=== PATIENT | female | born 1950 | race American Indian/Alaskan Native ===

== ENCOUNTER 2018-08-17 15:18 | Inpatient (IN) | payer MEDICARE ==
[2018-08-17] MEDS ORDERED: PROVENTIL IH ONE (16:10)
[2018-08-17] MEDS ORDERED: ATROVENT IH ONE (16:10)
[2018-08-17] MEDS ORDERED: DELTASONE PO ONE (16:10)
--- NOTE | 2018-08-17 16:17 | Emergency Department Report ---
ED Shortness of Breath HPI - General Chief Complaint: Dyspnea/Respdistress Stated Complaint: SOB Time Seen by Provider: 08/17/18 15:38 Source: patient Mode of arrival: Ambulatory Limitations: No Limitations - History of Present Illness Initial Comments: Mrs. Hansen is a 68-year-old female with history of asthma and COPD who presents with severe shortness of breath and wheezing for the past few days. She is visiting her sister from [place]. She presumes that her sister's dog's dander as the cause of this exacerbation. She normally requires a prednisone taper when she has severe attack. 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 She is not dependent on oxygen. She's had productive cough. She denies fever. Last use of antibiotics one week ago for a dental procedure. Recently admitted last month for COPD exacerbation in her home town. Complaint: shortness of breath, cough -: Gradual, days(s) (2-3) Severity: moderate Consistency: constant Worsens With: exertion Known History Of: COPD, asthma Context: allergen exposure, recent travel Associated Symptoms: cough, sputum production - Related Data Previous Rx's Medication Instructions Recorded Last Taken Type Prednisone [predniSONE 10 mg 10 mg PO .TAPER #1 tab.ds.pk 08/17/18 Unknown Rx (6-Day Pack, 21 Tabs)] Allergies Allergy/AdvReac Type Severity Reaction Status Date / Time DAGOBERTO Inhibitors Allergy Unknown Verified 08/17/18 15:21 avocado Allergy Unknown Verified 08/17/18 15:21 ED Review of Systems ROS: Stated complaint: SOB Other details as noted in HPI Comment: All other systems reviewed and negative Constitutional: denies: fever, malaise Respiratory: cough, shortness of breath, wheezing Cardiovascular: denies: chest pain ED Past Medical Hx - Past Medical History Previous Medical History?: Yes Hx Asthma: Yes Hx COPD: Yes - Surgical History Past Surgical History?: Yes Additional Surgical History: bilateral knee replacement. - Social History Smoking Status: Former Smoker Substance Use Type: Alcohol, Marijuana - Medications Home Medications: Home Medications Medication Instructions Recorded Confirmed Last Taken Type Prednisone [predniSONE 10 mg 10 mg PO .TAPER #1 tab.ds.pk 08/17/18 Unknown Rx (6-Day Pack, 21 Tabs)] ED Physical Exam - General Limitations: No Limitations General appearance: alert, in distress, other (bent over, uncomfortable with work of breathing, audible wheezing) - Head Head exam: Present: atraumatic, normocephalic - Eye Eye exam: Present: normal appearance - ENT ENT exam: Present: mucous membranes moist - Neck Neck exam: Present: normal inspection, full ROM - Respiratory Respiratory exam: Present: respiratory distress, wheezes, accessory muscle use, decreased breath sounds, prolonged expiratory - Cardiovascular Cardiovascular Exam: Present: normal rhythm, tachycardia, normal heart sounds. Absent: systolic murmur, diastolic murmur, rubs, gallop - GI/Abdominal GI/Abdominal exam: Present: soft, normal bowel sounds. Absent: distended, tenderness, guarding, rebound - Extremities Exam Extremities exam: Present: normal inspection - Back Exam Back exam: Present: normal inspection - Neurological Exam Neurological exam: Present: alert, oriented X3 - Psychiatric Psychiatric exam: Present: normal affect, normal mood - Skin Skin exam: Present: warm, dry, intact, normal color. Absent: rash ED Course Vital Signs 08/17/18 08/17/18 08/17/18 15:22 16:25 16:30 Temperature 98.1 F Pulse Rate 127 H Pulse Rate [ 119 H Anterior Bilateral] Respiratory 30 H Rate Respiratory 32 H Rate [Anterior Bilateral] Blood Pressure 145/91 O2 Sat by Pulse 94 79 L Oximetry 08/17/18 16:55 Temperature Pulse Rate Pulse Rate [ 121 H Anterior Bilateral] Respiratory Rate Respiratory 24 Rate [Anterior Bilateral] Blood Pressure O2 Sat by Pulse Oximetry ED Medical Decision Making - Lab Data Result diagrams: 08/17/18 17:54 08/17/18 17:54 - Radiology Data Radiology results: report reviewed cxr: prominent hilum - Medical Decision Making Acute COPD exacerbation presumed to be incited by allergen exposure. She received continuous neb therapy in the emergency Department as well as first dose prednisone. Continued wheezing with need for oxygen supplementation. admitted to hospitalist service Critical care attestation.: If time is entered above; I have spent that time in minutes in the direct care of this critically ill patient, excluding procedure time. ED Disposition Clinical Impression: Acute exacerbation of COPD with asthma Disposition: OP ADMIT IP TO THIS HOSP Is pt being admited?: Yes Does the pt Need Aspirin: No Condition: Stable Prescriptions: Prednisone [predniSONE 10 mg (6-Day Pack, 21 Tabs)] 10 mg PO .TAPER #1 tab.ds.pk Referrals: PRIMARY CARE, [Primary Care Provider] - 3-5 Days
[2018-08-17] MEDS ORDERED: MAGNESIUM SULFATE 2GM/50ML 2 GM/50 ML BAG IV ONE (17:21)
--- NOTE | 2018-08-17 17:48 | XRay Report ---
PROCEDURE: XR CHEST 1V AP TECHNIQUE: Chest radiograph single view. HISTORY: Dyspnea COMPARISONS: None . FINDINGS: Heart: Normal. Mediastinum/Vessels: Mildly prominent right hilum may be related to vascular prominence or adenopathy . Lungs/Pleural space: No infiltrate, effusion, or pneumothorax. Bony thorax: No acute osseous abnormality. Life support devices: None. IMPRESSION: Mildly prominent right hilum may be related to vascular prominence or adenopathy. This document is electronically signed by Sharmila Mukherjee MD., Aug 17 2018 05:46:34 PM ET
[2018-08-17 18:19] LABS: Basophils % (Auto) 0.6 % (0.0-1.8); Eosinophils # (Auto) 0.2 K/mm3 (0.0-0.4); Eosinophils % (Auto) 2.8 % (0.0-4.3); Hematocrit 41.7 % (30.3-42.9); Hemoglobin 14.5 gm/dl (10.1-14.3); Lymphocytes # (Auto) 1.3 K/mm3 (1.2-5.4); Lymphocytes % (Auto) 18.1 % (13.4-35.0); Mean Corpuscular HGB Conc 35 % (30-34); Mean Corpuscular Volume 93 fl (79-97); Monocytes # (Auto) 0.8 K/mm3 (0.0-0.8); Monocytes % (Auto) 11.3 % (0.0-7.3); Platelet Count 252 K/mm3 (140-440); Red Blood Count 4.48 M/mm3 (3.65-5.03); Red Cell Distribution Width 15.4 % (13.2-15.2)
[2018-08-17] MEDS ORDERED: LEVAQUIN PO ONE (18:21)
[2018-08-17 18:30] LABS: Alanine Aminotransferase 7 units/L (7-56); Albumin 4.2 g/dL (3.9-5); BUN/Creatinine Ratio 10; Blood Urea Nitrogen 7 mg/dL (7-17); Calcium 9.5 mg/dL (8.4-10.2); Hemolysis Index 21
--- NOTE | 2018-08-17 20:37 | History and Physical Report ---
History of Present Illness Date of examination: 08/17/18 Date of admission: 08/17/18 18:56 Chief complaint: SOB and wheezing for 3 to 4 days History of present illness: 68-year-old female with history of asthma and COPD presents with severe shortness of breath and wheezing for the past 3 to days. She is from [facility] visiting her sister in [place]. She presumes that her sister's dog's dander as the cause of this exacerbation. She normally requires a prednisone taper when she has severe attack. 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 She is not dependent on oxygen. She's has cough of mucoid sputum.. She denies fever. Last use of antibiotics one week ago for a dental procedure. Past Medical History Previous Medical History?: Yes Asthma: Yes COPD: Yes Surgical History Past Surgical History?: Yes Additional Surgical History: bilateral knee replacement. Social History Smoking Status: Former Smoker Substance Use Type: Alcohol, Marijuana Family History Htn - Medications Home Medications: Home Medications Medication Instructions Recorded Confirmed Last Taken Type Prednisone [predniSONE 10 mg 10 mg PO .TAPER #1 tab.ds.pk 08/17/18 Unknown Rx (6-Day Pack, 21 Tabs)] Medications and Allergies Allergies Allergy/AdvReac Type Severity Reaction Status Date / Time DAGOBERTO Inhibitors Allergy Unknown Verified 08/17/18 15:21 avocado Allergy Unknown Verified 08/17/18 15:21 Home Medications Medication Instructions Recorded Confirmed Last Taken Type Fluticasone/Salmeterol [Advair 1 puff PO DAILY 08/17/18 08/17/18 Unknown History Diskus 500-50 mcg] Montelukast [Singulair] 1 tab PO HS 08/17/18 08/17/18 Unknown History Prednisone [predniSONE 10 mg 10 mg PO .TAPER #1 tab.ds.pk 08/17/18 Unknown Rx (6-Day Pack, 21 Tabs)] Roflumilast [Daliresp] 500 mcg PO QDAY 08/17/18 08/17/18 Unknown History Umeclidinium [place] [Incruse 62.5 mcg IH DAILY 08/17/18 08/17/18 Unknown History Ellipta 62.5MCG] Review of Systems All systems: negative Constitutional: no weight loss, no weight gain, no fever, no chills Ears, nose, mouth and throat: no ear pain, no ear discharge, no tinnitis, no decreased hearing, no nose pain, no nasal congestion Cardiovascular: shortness of breath Respiratory: cough, cough with sputum, shortness of breath, dyspnea on exertion, congestion, wheezing Gastrointestinal: no abdominal pain, no nausea, no vomiting, no diarrhea, no constipation Genitourinary Female: no dysuria, no urinary frequency, no urgency, no stress incontinence Menstruation: ammenorrhea Rectal: no pain Musculoskeletal: no neck stiffness, no neck pain, no shooting arm pain, no arm numbness/tingling, no low back pain, no shooting leg pain, no leg numbness/tingling, no redness of joints Integumentary: no rash, no pruritis, no redness, no sores, no wounds, no jaundice, no boils, no blisters Neurological: no seizures, no syncope Psychiatric: no anxiety, no memory loss, no change in sleep habits, no sleep disturbances, no insomnia, no hypersomnia, no change in appetite, no change in libido Endocrine: no cold intolerance, no heat intolerance, no polyphagia, no excessive thirst, no polydipsia Hematologic/Lymphatic: no easy bruising, no easy bleeding Allergic/Immunologic: wheezing, no urticaria, no allergic rhinitis Exam - Constitutional Vitals: Temp Pulse Resp BP Pulse Ox 98.3 F 117 H 20 139/90 89 08/17/18 20:25 08/17/18 20:00 08/17/18 20:20 08/17/18 20:20 08/17/18 20:00 General appearance: Present: mild distress, well-nourished - EENT Eyes: Present: PERRL ENT: hearing intact, clear oral mucosa - Neck Neck: Present: supple, normal ROM - Respiratory Respiratory effort: normal Respiratory: bilateral: CTA, rhonchi, wheezing - Cardiovascular Heart rate: 88 Rhythm: regular Heart Sounds: Present: S1 & S2. Absent: rub, click - Extremities Extremities: no ischemia, pulses intact, pulses symmetrical, No edema Peripheral Pulses: within normal limits - Abdominal General gastrointestinal: Present: soft, non-tender, non-distended, normal bowel sounds Female genitourinary: Present: normal - Rectal Rectal Exam: deferred - Integumentary Integumentary: Present: clear, warm, dry - Musculoskeletal Musculoskeletal: gait normal, strength equal bilaterally - Psychiatric Psychiatric: appropriate mood/affect, intact judgment & insight - Neurologic Neurologic: CNII-XII intact, moves all extremities - Allied Health Allied health notes reviewed: nursing Results - Labs CBC & Chem 7: 08/17/18 17:54 08/17/18 17:54 Labs: Laboratory Last Values WBC 7.2 K/mm3 (4.5-11.0) 08/17/18 17:54 RBC 4.48 M/mm3 (3.65-5.03) 08/17/18 17:54 Hgb 14.5 gm/dl (10.1-14.3) H 08/17/18 17:54 Hct 41.7 % (30.3-42.9) 08/17/18 17:54 MCV 93 fl (79-97) 08/17/18 17:54 MCH 32 pg (28-32) 08/17/18 17:54 MCHC 35 % (30-34) H 08/17/18 17:54 RDW 15.4 % (13.2-15.2) H 08/17/18 17:54 Plt Count 252 K/mm3 (140-440) 08/17/18 17:54 Lymph % (Auto) 18.1 % (13.4-35.0) 08/17/18 17:54 [place] % (Auto) 11.3 % (0.0-7.3) H 08/17/18 17:54 Eos % (Auto) 2.8 % (0.0-4.3) 08/17/18 17:54 Baso % (Auto) 0.6 % (0.0-1.8) 08/17/18 17:54 Lymph # 1.3 K/mm3 (1.2-5.4) 08/17/18 17:54 [place] # 0.8 K/mm3 (0.0-0.8) 08/17/18 17:54 Eos # 0.2 K/mm3 (0.0-0.4) 08/17/18 17:54 Baso # 0.0 K/mm3 (0.0-0.1) 08/17/18 17:54 Seg Neutrophils % 67.2 % (40.0-70.0) 08/17/18 17:54 Seg Neutrophils # 4.8 K/mm3 (1.8-7.7) 08/17/18 17:54 Sodium 137 mmol/L (137-145) 08/17/18 17:54 Potassium 3.3 mmol/L (3.6-5.0) L 08/17/18 17:54 Chloride 96.4 mmol/L (98-107) L 08/17/18 17:54 Carbon Dioxide 24 mmol/L (22-30) 08/17/18 17:54 20 mmol/L 08/17/18 17:54 BUN 7 mg/dL (7-17) 08/17/18 17:54 0.7 mg/dL (0.7-1.2) 08/17/18 17:54 Estimated GFR > 60 ml/min 08/17/18 17:54 10 % 08/17/18 17:54 Glucose 120 mg/dL (65-100) H 08/17/18 17:54 Calcium 9.5 mg/dL (8.4-10.2) 08/17/18 17:54 0.30 mg/dL (0.1-1.2) 08/17/18 17:54 AST 20 units/L (5-40) 08/17/18 17:54 ALT 7 units/L (7-56) 08/17/18 17:54 79 units/L (35-129) 08/17/18 17:54 7.1 g/dL (6.3-8.2) 08/17/18 17:54 4.2 g/dL (3.9-5) 08/17/18 17:54 1.4 % 08/17/18 17:54 Short CBC 08/17/18 Range/Units 17:54 WBC 7.2 (4.5-11.0) K/mm3 Hgb 14.5 H (10.1-14.3) gm/dl Hct 41.7 (30.3-42.9) % Plt Count 252 (140-440) K/mm3 BMP 08/17/18 17:54 Sodium 137 Potassium 3.3 L Chloride 96.4 L Carbon Dioxide 24 BUN 7 Creatinine 0.7 Glucose 120 H Calcium 9.5 Liver Function 08/17/18 Range/Units 17:54 Total Bilirubin 0.30 (0.1-1.2) mg/dL AST 20 (5-40) units/L ALT 7 (7-56) units/L Alkaline Phosphatase 79 (35-129) units/L Albumin 4.2 (3.9-5) g/dL - Imaging and Cardiology Chest x-ray: report reviewed Imaging and Cardiology: CXR IMPRESSION: Mildly prominent right hilum may be related to vascular prominence or adenopathy. Assessment and Plan Advance Directives: Yes (Full code) VTE prophylaxis?: Chemical Plan of care discussed with patient/family: Yes - Patient Problems (1) Acute exacerbation of COPD with asthma Current Visit: Yes Status: Acute Plan to address problem: Patient initiated on IV Levaquin IV Solumedrol and Duonebs /Albuterol Bipap if necessary Intubation if necessary (2) Acute respiratory failure with hypoxia Current Visit: Yes Status: Acute Plan to address problem: Patient Hypoxic initially Refuses ABG Patient initiated on IV Levaquin IV Solumedrol and Duonebs /Albuterol Bipap if necessary Intubation if necessary (3) Hypokalemia Current Visit: Yes Status: Acute Plan to address problem: Potassium supplemented (4) DVT prophylaxis Current Visit: Yes Status: Acute Plan to address problem: On Lovenox and GI prophylaxis
[2018-08-17] MEDS ORDERED: ZOFRAN IV PRN (20:42)
[2018-08-17] MEDS ORDERED: PERCOCET 5/325 PO PRN (20:42)
[2018-08-17] MEDS ORDERED: MORPHINE IV PRN (20:42)
[2018-08-17] MEDS ORDERED: UMECLIDINIUM BROMIDE 62.5 MCG IH SCH (20:45)
[2018-08-17] MEDS ORDERED: NON-FORMULARY (Fluticasone/Salmeterol [Advair Diskus 500-50 Mcg] 1 PUFF) PO SCH (20:45)
[2018-08-17] MEDS: SINGULAIR PO SCH (22:55)
[2018-08-17] MEDS: SOLU-Medrol IV SCH (22:55)
[2018-08-17] MEDS: SODIUM CHLORIDE FLUSH SYRINGE 10 ML IV SCH (22:56)
[2018-08-17] MEDS ORDERED: PEPCID PO ONE (23:33)
[2018-08-17] MEDS: PROVENTIL IH PRN (23:57)
[2018-08-18] MEDS ORDERED: K-DUR PO ONE (00:08)
[2018-08-18] MEDS: PULMICORT IH SCH ×3 (02:49→19:49)
[2018-08-18] MEDS: BROVANA NEBU IH SCH ×3 (02:49→19:49)
[2018-08-18] MEDS: PROVENTIL IH PRN (04:18)
[2018-08-18] MEDS: SOLU-Medrol IV SCH ×3 (05:46→21:58)
[2018-08-18] MEDS: DUONEB *Not for PRN Use IH SCH ×4 (07:36→19:49)
[2018-08-18] MEDS: SODIUM CHLORIDE FLUSH SYRINGE 10 ML IV SCH ×2 (09:46→22:00)
[2018-08-18] MEDS: LEVAQUIN 750MG/150ML 750 MG/150 ML BAG IV SCH (09:47)
[2018-08-18 12:14] LABS: Basophils % (Auto) 0.2 % (0.0-1.8); Hemoglobin 14.1 gm/dl (10.1-14.3); Lymphocytes # (Auto) 0.5 K/mm3 (1.2-5.4); Lymphocytes % (Auto) 9.2 % (13.4-35.0); Mean Corpuscular HGB Conc 34 % (30-34); Mean Corpuscular Volume 94 fl (79-97); Monocytes # (Auto) 0.2 K/mm3 (0.0-0.8); Monocytes % (Auto) 3.9 % (0.0-7.3); Platelet Count 240 K/mm3 (140-440); Red Blood Count 4.48 M/mm3 (3.65-5.03); Red Cell Distribution Width 15.4 % (13.2-15.2)
[2018-08-18] MEDS: TYLENOL PO PRN ×2 (12:37→22:05)
[2018-08-18 12:38] LABS: Alanine Aminotransferase 9 units/L (7-56); Albumin 4.2 g/dL (3.9-5); BUN/Creatinine Ratio 13; Blood Urea Nitrogen 9 mg/dL (7-17); Calcium 9.4 mg/dL (8.4-10.2); Hemolysis Index 84
--- NOTE | 2018-08-18 14:24 | Progress Note ---
Assessment and Plan Assessment and plan: SOB and wheezing for 3 to 4 days History of present illness: 68-year-old female with history of asthma and COPD presents with severe shortness of breath and wheezing for the past 3 to days. She is from [facility] visiting her sister in [place]. She presumes that her sister's dog's dander as the cause of this exacerbation. She normally requires a prednisone taper when she has severe attack. 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 She is not dependent on oxygen. She's has cough of mucoid sputum.. She denies fever. Last use of antibiotics one week ago for a dental procedure. -She has had FEV1 of 0.6, complaining of recent exposure to pet hair and tobacco smoke from secondhand smoke Past Medical History Previous Medical History?: Yes Asthma: Yes COPD: Yes ) Acute exacerbation of severe COPD with asthma Continue steroids and nebulizers, rescue BiPAP as needed -Continue oxygen supplementation Acute respiratory failure with hypoxia Continue to supplement oxygen (Hypokalemia Potassium supplemented DVT prophylaxis On Lovenox and GI prophylaxis History Interval history: Review of systems Constitutional: No fevers, no malaise, no joint pains CVS: No chest pain, no orthopnea, no pedal edema GI: No abdominal pain, no diarrhea, no vomiting, no constipation Respiratory: Continues to complain of shortness of breath, wheezing, and cough Hospitalist Physical - Physical exam Narrative exam: General.: Appears well, no distress, nontoxic HEENT: Moist mucous membranes, extraocular muscles intact, no lymphadenopathy Neck: supple Cardiac: S1-S2 heard Lungs: Diminished air entry, wheezing throughout Abdomen: soft , nontender, nondistended, bowel sounds positive Extremities: no edema clubbing or cyanosis Skin: no rash or lesions Neurologic: no gross focal deficits Psych: calm, and cooperative - Constitutional Vitals: Temp Pulse Resp BP Pulse Ox 98.6 F 93 H 22 140/90 94 08/18/18 08:25 08/18/18 08:25 08/18/18 08:25 08/18/18 08:25 08/18/18 08:25 General appearance: Present: mild distress, well-nourished Results - Labs CBC & Chem 7: 08/18/18 11:40 08/18/18 11:40 Labs: Laboratory Last Values WBC 4.9 K/mm3 (4.5-11.0) 08/18/18 11:40 RBC 4.48 M/mm3 (3.65-5.03) 08/18/18 11:40 Hgb 14.1 gm/dl (10.1-14.3) 08/18/18 11:40 Hct 42.0 % (30.3-42.9) 08/18/18 11:40 MCV 94 fl (79-97) 08/18/18 11:40 MCH 32 pg (28-32) 08/18/18 11:40 MCHC 34 % (30-34) 08/18/18 11:40 RDW 15.4 % (13.2-15.2) H 08/18/18 11:40 Plt Count 240 K/mm3 (140-440) 08/18/18 11:40 Lymph % (Auto) 9.2 % (13.4-35.0) L 08/18/18 11:40 [place] % (Auto) 3.9 % (0.0-7.3) 08/18/18 11:40 Eos % (Auto) 0.0 % (0.0-4.3) 08/18/18 11:40 Baso % (Auto) 0.2 % (0.0-1.8) 08/18/18 11:40 Lymph # 0.5 K/mm3 (1.2-5.4) L 08/18/18 11:40 [place] # 0.2 K/mm3 (0.0-0.8) 08/18/18 11:40 Eos # 0.0 K/mm3 (0.0-0.4) 08/18/18 11:40 Baso # 0.0 K/mm3 (0.0-0.1) 08/18/18 11:40 Seg Neutrophils % 86.7 % (40.0-70.0) H 08/18/18 11:40 Seg Neutrophils # 4.2 K/mm3 (1.8-7.7) 08/18/18 11:40 Sodium 137 mmol/L (137-145) 08/18/18 11:40 Potassium 4.3 mmol/L (3.6-5.0) D 08/18/18 11:40 Chloride 95.2 mmol/L (98-107) L 08/18/18 11:40 Carbon Dioxide 28 mmol/L (22-30) 08/18/18 11:40 18 mmol/L 08/18/18 11:40 BUN 9 mg/dL (7-17) 08/18/18 11:40 0.7 mg/dL (0.7-1.2) 08/18/18 11:40 Estimated GFR > 60 ml/min 08/18/18 11:40 13 % 08/18/18 11:40 Glucose 192 mg/dL (65-100) H 08/18/18 11:40 5.5 % (4-6) 08/17/18 20:55 Calcium 9.4 mg/dL (8.4-10.2) 08/18/18 11:40 0.20 mg/dL (0.1-1.2) 08/18/18 11:40 AST 26 units/L (5-40) 08/18/18 11:40 ALT 9 units/L (7-56) 08/18/18 11:40 73 units/L (35-129) 08/18/18 11:40 7.3 g/dL (6.3-8.2) 08/18/18 11:40 4.2 g/dL (3.9-5) 08/18/18 11:40 1.4 % 08/18/18 11:40 Active Medications - Current Medications Current Medications: Generic Name Dose Route Start Last Admin Trade Name Freq PRN Reason Stop Dose Admin Acetaminophen 650 mg 08/17/18 20:42 08/18/18 12:37 Tylenol PO 650 mg Q4H PRN Administration Pain MILD(1-3)/Fever >100.5/LEMA Albuterol 2.5 mg 08/17/18 20:46 08/18/18 04:18 Proventil IH 2.5 mg Q4HRT PRN Administration Shortness Of Breath Albuterol/Ipratropium 1 ampul 08/18/18 08:00 08/18/18 12:59 Duoneb *Not For Prn Use* IH 1 ampul QIDRT JEFFERY Administration Arformoterol Tartrate 15 mcg 08/17/18 21:00 08/18/18 07:36 Brovana Nebu IH 15 mcg Q12HRT JEFFERY Administration Budesonide 0.5 mg 08/17/18 21:00 08/18/18 07:36 Pulmicort IH 0.5 mg Q12HRT JEFFERY Administration Enoxaparin Sodium 40 mg 08/18/18 22:00 Lovenox SUB-Q QDAY@2200 JEFFERY Sodium Chloride 1,000 mls @ 42 mls/hr 08/17/18 21:00 Nacl 0.9% 1000 Ml IV DIRECT JEFFERY Levofloxacin/Dextrose 750 mg in 150 mls @ 100 mls/hr 08/18/18 10:00 08/18/18 09:47 Levaquin 750mg/150ml IV 100 mls/hr Q24HR JEFFERY Administration Protocol Methylprednisolone Sodium Succinate 80 mg 08/17/18 22:00 08/18/18 05:46 Solu-Medrol IV 80 mg Q8HR JEFFERY Administration Miscellaneous Medication 500 mcg 08/17/18 20:45 Roflumilast [Daliresp] PO QDAY JEFFERY Montelukast Sodium 10 mg 08/17/18 22:00 08/17/18 22:55 Singulair PO 10 mg HS JEFFERY Administration Morphine Sulfate 2 mg 08/17/18 20:42 Morphine IV Q4H PRN Pain, Moderate (4-6) Ondansetron HCl 4 mg 08/17/18 20:42 Zofran IV Q8H PRN Nausea And Vomiting Oxycodone/Acetaminophen 1 tab 08/17/18 20:42 Percocet 5/325 PO Q6H PRN Pain, Moderate (4-6) Sodium Chloride 10 ml 08/17/18 22:00 08/18/18 09:46 Sodium Chloride Flush Syringe 10 Ml IV 10 ml BID JEFFERY Administration Sodium Chloride 10 ml 08/17/18 20:42 Sodium Chloride Flush Syringe 10 Ml IV PRN PRN LINE FLUSH
[2018-08-18] MEDS: NACL 0.9% 1000 ML 1,000 ML IV SCH (16:03)
--- NOTE | 2018-08-18 18:06 | Consultation ---
History of Present Illness Consult date: 08/18/18 Reason for consult: dyspnea, cough, COPD History of present illness: PULMONARY AND CRITICAL CARE CONSULTATION. DR. MONROE THANK YOU FOR ASKING US TO PARTICIPATE IN THE CARE OF THIS PATIENT. 68-year-old female with history of asthma and COPD presents with severe shortness of breath and wheezing for the past 3 to days. She is from [facility] visiting her sister in [place]. She presumes that her sister's dog's dander as the cause of this exacerbation. She normally requires a prednisone taper when she has severe attack. 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 She is not dependent on oxygen. She's has cough of mucoid sputum.. She denies fever. Last use of antibiotics one week ago for a dental procedure. Patient has history of smoking 5 to 6 cigaretts a day x 50 years. Stopped smoking 3 months ago. Patient also smokes Marijuna. Denies alcohol abuse. 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 Patient is allergic to DAGOBERTO inhhibitors and avacado. Patient and has one living children. Patient started on I/V solumedrol,Levaquin and aerosolized bronchodilators. Patient still has some wheezing. Past History Past Medical History: COPD, hypertension Medications and Allergies Allergies Allergy/AdvReac Type Severity Reaction Status Date / Time DAGOBERTO Inhibitors Allergy Unknown Verified 08/17/18 15:21 avocado Allergy Unknown Verified 08/17/18 15:21 Home Medications Medication Instructions Recorded Confirmed Last Taken Type Fluticasone/Salmeterol [Advair 1 puff PO DAILY 08/17/18 08/17/18 Unknown History Diskus 500-50 mcg] Montelukast [Singulair] 1 tab PO HS 08/17/18 08/17/18 Unknown History Prednisone [predniSONE 10 mg 10 mg PO .TAPER #1 tab.ds.pk 08/17/18 Unknown Rx (6-Day Pack, 21 Tabs)] Roflumilast [Daliresp] 500 mcg PO QDAY 08/17/18 08/17/18 Unknown History Umeclidinium [place]im [Incruse 62.5 mcg IH DAILY 08/17/18 08/17/18 Unknown History Ellipta 62.5MCG] Daliresp 500 mcg PO DAILY 08/18/18 08/18/18 Unknown History Hydrochlorothiazide 12.5 mg PO QDAY 08/18/18 08/18/18 Unknown History Losartan 100 mg PO QDAY 08/18/18 08/18/18 Unknown History Active Meds: Active Medications Acetaminophen (Tylenol) 650 mg PO Q4H PRN PRN Reason: Pain MILD(1-3)/Fever >100.5/LEMA Last Admin: 08/18/18 12:37 Dose: 650 mg Documented by: Albuterol (Proventil) 2.5 mg IH Q4HRT PRN PRN Reason: Shortness Of Breath Last Admin: 08/18/18 04:18 Dose: 2.5 mg Documented by: Albuterol/Ipratropium (Duoneb *Not For Prn Use*) 1 ampul IH QIDRT [facility] Last Admin: 08/18/18 16:36 Dose: 1 ampul Documented by: Arformoterol Tartrate (Brovana Nebu) 15 mcg IH Q12HRT [facility] Last Admin: 08/18/18 07:36 Dose: 15 mcg Documented by: Budesonide (Pulmicort) 0.5 mg IH Q12HRT [facility] Last Admin: 08/18/18 07:36 Dose: 0.5 mg Documented by: Enoxaparin Sodium (Lovenox) 40 mg SUB-Q QDAY@2200 JEFFERY Sodium Chloride (Nacl 0.9% 1000 Ml) 1,000 mls @ 42 mls/hr IV DIRECT [facility] Last Admin: 08/18/18 16:03 Dose: 42 mls/hr Documented by: Levofloxacin/Dextrose (Levaquin 750mg/150ml) 750 mg in 150 mls @ 100 mls/hr IV Q24HR [facility]; Protocol Last Admin: 08/18/18 09:47 Dose: 100 mls/hr Documented by: Methylprednisolone Sodium Succinate (Solu-Medrol) 125 mg IV Q8HR [facility] Miscellaneous Medication (Roflumilast [Daliresp]) 500 mcg PO QDAY [facility] Montelukast Sodium (Singulair) 10 mg PO HS [facility] Last Admin: 08/17/18 22:55 Dose: 10 mg Documented by: Morphine Sulfate (Morphine) 2 mg IV Q4H PRN PRN Reason: Pain, Moderate (4-6) Ondansetron HCl (Zofran) 4 mg IV Q8H PRN PRN Reason: Nausea And Vomiting Oxycodone/Acetaminophen (Percocet 5/325) 1 tab PO Q6H PRN PRN Reason: Pain, Moderate (4-6) Sodium Chloride (Sodium Chloride Flush Syringe 10 Ml) 10 ml IV BID JEFFERY Last Admin: 08/18/18 09:46 Dose: 10 ml Documented by: Sodium Chloride (Sodium Chloride Flush Syringe 10 Ml) 10 ml IV PRN PRN PRN Reason: LINE FLUSH Review of Systems All systems: negative Physical Examination Vital signs: Vital Signs Temp Pulse Resp BP Pulse Ox 98.1 F 127 H 30 H 145/91 94 08/17/18 15:22 08/17/18 15:22 08/17/18 15:22 08/17/18 15:22 08/17/18 15:22 General appearance: no acute distress, alert Eyes: non-icteric ENT: oropharynx moist Neck: supple, no JVD Ascultation: Bilateral: wheezes (Diffuse bilateral wheezing.), rhonchi (Bilateral rhonchi.) Cardiovascular: regular rate and rhythm Gastrointestinal: normoactive bowel sounds, soft, non-tender Integumentary: normal Extremities: no cyanosis, no edema Musculoskeletal: no deformities Gait: normal gait normal mental status, non-focal exam, pupils equal and round, CN II-XII normal mood appropriate Results - Laboratory Findings CBC and BMP: 08/18/18 11:40 08/18/18 11:40 Abnormal lab findings: Abnormal Labs 08/17/18 08/17/18 08/18/18 17:54 17:54 11:40 Hgb 14.5 H MCHC 35 H RDW 15.4 H 15.4 H Lymph % (Auto) 9.2 L [place] % (Auto) 11.3 H Lymph # 0.5 L Seg Neutrophils % 86.7 H Potassium 3.3 L Chloride 96.4 L Glucose 120 H 08/18/18 11:40 Hgb MCHC RDW Lymph % (Auto) [place] % (Auto) Lymph # Seg Neutrophils % Potassium Chloride 95.2 L Glucose 192 H - Diagnostic Findings Chest x-ray: report reviewed (Reported mildly prominent right hilum.), image re viewed Assessment and Plan 68-year-old female with history of asthma and COPD presents with severe shortness of breath and wheezing for the past 3 to days. She is from [facility] visiting her sister in [place]. She presumes that her sister's dog's dander as the cause of this exacerbation. She normally requires a prednisone taper when she has severe attack. 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 She is not dependent on oxygen. She's has cough of mucoid sputum.. She denies fever. Last use of antibiotics one week ago for a dental procedure. Patient has history of smoking 5 to 6 cigaretts a day x 50 years. Stopped smoking 3 months ago. Patient also smokes Marijuna. Denies alcohol abuse. 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 Patient is allergic to DAGOBERTO inhhibitors and avacado. Patient and has one living children. Patient started on I/V solumedrol,Levaquin and aerosolized bronchodilators. Patient still has some wheezing. - Patient Problems (1) Acute exacerbation of COPD with asthma Current Visit: Yes Status: Acute Plan to address problem: O2 3 litres via nasal canula. Albuterol/atrovent aerosol treatments q 6 hours. Continue I/V solumedrol. Continue Levaquin Continue S/C Lovenox. ABGs on room air. Chest xray reported slightly prominent right hilum, Obtaining Angio CT scan of chest. (2) Acute respiratory failure with hypoxia Current Visit: Yes Status: Acute Plan to address problem: O2 3 litres via nasal canula. BIPAP stand by in the room. Albuterol/atrovent aerosol treatments q 6 hours. Continue I/V solumedrol. Continue Levaquin Continue S/C Lovenox.
[2018-08-18] MEDS: SINGULAIR PO SCH (21:58)
[2018-08-18] MEDS: LOVENOX SUB-Q SCH (21:59)
[2018-08-19] MEDS: PROVENTIL IH PRN (01:34)
[2018-08-19] MEDS: ATIVAN PO PRN ×4 (02:28→21:55)
[2018-08-19] MEDS: SOLU-Medrol IV SCH ×3 (05:58→21:55)
[2018-08-19] MEDS: PULMICORT IH SCH ×2 (07:30→20:11)
[2018-08-19] MEDS: BROVANA NEBU IH SCH ×2 (07:30→20:10)
[2018-08-19] MEDS: DUONEB *Not for PRN Use IH SCH ×4 (07:53→20:10)
--- NOTE | 2018-08-19 08:01 | Progress Note ---
Assessment and Plan Assessment and plan: SOB and wheezing for 3 to 4 days History of present illness: 68-year-old female with history of asthma and COPD presents with severe shortness of breath and wheezing for the past 3 to days. She is from [facility] visiting her sister in [place]. She presumes that her sister's dog's dander as the cause of this exacerbation. She normally requires a prednisone taper when she has severe attack. 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 She is not dependent on oxygen. She's has cough of mucoid sputum.. She denies fever. Last use of antibiotics one week ago for a dental procedure. -She has had FEV1 of 0.6, complaining of recent exposure to pet hair and tobacco smoke from secondhand smoke Past Medical History Previous Medical History?: Yes Asthma: Yes COPD: Yes ) Acute exacerbation of severe COPD with asthma Continue steroids and nebulizers, rescue BiPAP as needed -Continue oxygen supplementation Acute respiratory failure with hypoxia Continue to supplement oxygen (Hypokalemia Potassium supplemented DVT prophylaxis On Lovenox and GI prophylaxis History Interval history: Review of systems Constitutional: No fevers, no malaise, no joint pains CVS: No chest pain, no orthopnea, no pedal edema GI: No abdominal pain, no diarrhea, no vomiting, no constipation Respiratory: Continues to complain of shortness of breath, wheezing, and cough Hospitalist Physical - Physical exam Narrative exam: General.: Appears well, no distress, nontoxic HEENT: Moist mucous membranes, extraocular muscles intact, no lymphadenopathy Neck: supple Cardiac: S1-S2 heard Lungs: Diminished air entry, wheezing throughout Abdomen: soft , nontender, nondistended, bowel sounds positive Extremities: no edema clubbing or cyanosis Skin: no rash or lesions Neurologic: no gross focal deficits Psych: calm, and cooperative - Constitutional Vitals: Temp Pulse Resp BP Pulse Ox 97.3 F L 94 H 20 144/91 99 08/19/18 02:30 08/19/18 07:40 08/19/18 07:40 08/19/18 06:14 08/19/18 06:14 General appearance: Present: mild distress, well-nourished Results - Labs CBC & Chem 7: 08/18/18 11:40 08/18/18 11:40 Labs: Laboratory Last Values WBC 4.9 K/mm3 (4.5-11.0) 05/27/19 11:40 RBC 4.48 M/mm3 (3.65-5.03) 08/18/18 11:40 Hgb 14.1 gm/dl (10.1-14.3) 08/18/18 11:40 Hct 42.0 % (30.3-42.9) 08/18/18 11:40 MCV 94 fl (79-97) 08/18/18 11:40 MCH 32 pg (28-32) 08/18/18 11:40 MCHC 34 % (30-34) 08/18/18 11:40 RDW 15.4 % (13.2-15.2) H 08/18/18 11:40 Plt Count 240 K/mm3 (140-440) 08/18/18 11:40 Lymph % (Auto) 9.2 % (13.4-35.0) L 08/18/18 11:40 [place] % (Auto) 3.9 % (0.0-7.3) 08/18/18 11:40 Eos % (Auto) 0.0 % (0.0-4.3) 08/18/18 11:40 Baso % (Auto) 0.2 % (0.0-1.8) 08/18/18 11:40 Lymph # 0.5 K/mm3 (1.2-5.4) L 08/18/18 11:40 [place] # 0.2 K/mm3 (0.0-0.8) 08/18/18 11:40 Eos # 0.0 K/mm3 (0.0-0.4) 08/18/18 11:40 Baso # 0.0 K/mm3 (0.0-0.1) 08/18/18 11:40 Seg Neutrophils % 86.7 % (40.0-70.0) H 08/18/18 11:40 Seg Neutrophils # 4.2 K/mm3 (1.8-7.7) 08/18/18 11:40 Sodium 137 mmol/L (137-145) 08/18/18 11:40 Potassium 4.3 mmol/L (3.6-5.0) D 08/18/18 11:40 Chloride 95.2 mmol/L (98-107) L 08/18/18 11:40 Carbon Dioxide 28 mmol/L (22-30) 08/18/18 11:40 18 mmol/L 08/18/18 11:40 BUN 9 mg/dL (7-17) 08/18/18 11:40 0.7 mg/dL (0.7-1.2) 08/18/18 11:40 Estimated GFR > 60 ml/min 08/18/18 11:40 13 % 08/18/18 11:40 Glucose 192 mg/dL (65-100) H 08/18/18 11:40 5.5 % (4-6) 08/17/18 20:55 Calcium 9.4 mg/dL (8.4-10.2) 08/18/18 11:40 0.20 mg/dL (0.1-1.2) 08/18/18 11:40 AST 26 units/L (5-40) 08/18/18 11:40 ALT 9 units/L (7-56) 08/18/18 11:40 73 units/L (35-129) 08/18/18 11:40 7.3 g/dL (6.3-8.2) 08/18/18 11:40 4.2 g/dL (3.9-5) 08/18/18 11:40 1.4 % 08/18/18 11:40 Active Medications - Current Medications Current Medications: Generic Name Dose Route Start Last Admin Trade Name Freq PRN Reason Stop Dose Admin Acetaminophen 650 mg 08/17/18 20:42 08/18/18 22:05 Tylenol PO 650 mg Q4H PRN Administration Pain MILD(1-3)/Fever >100.5/LEMA Albuterol 2.5 mg 08/17/18 20:46 08/19/18 01:34 Proventil IH 2.5 mg Q4HRT PRN Administration Shortness Of Breath Albuterol/Ipratropium 1 ampul 08/18/18 08:00 08/19/18 07:53 Duoneb *Not For Prn Use* IH Not Given QIDRT JEFFERY Arformoterol Tartrate 15 mcg 08/17/18 21:00 08/19/18 07:30 Brovana Nebu IH 15 mcg Q12HRT JEFFERY Administration Budesonide 0.5 mg 08/17/18 21:00 08/19/18 07:30 Pulmicort IH 0.5 mg Q12HRT JEFFERY Administration Enoxaparin Sodium 40 mg 08/18/18 22:00 08/18/18 21:59 Lovenox SUB-Q Not Given QDAY@2200 JEFFERY Sodium Chloride 1,000 mls @ 42 mls/hr 08/17/18 21:00 08/18/18 16:03 Nacl 0.9% 1000 Ml IV 42 mls/hr DIRECT JEFFERY Administration Levofloxacin/Dextrose 750 mg in 150 mls @ 100 mls/hr 08/18/18 10:00 08/18/18 11:17 Levaquin 750mg/150ml IV 08/19/18 12:59 Infused Q24HR JEFFERY Infusion Protocol Levofloxacin 750 mg 08/20/18 10:00 Levaquin PO DAILY JEFFERY Lorazepam 0.5 mg 08/19/18 02:06 08/19/18 02:28 Ativan PO 0.5 mg Q6H PRN Administration Anxiety Methylprednisolone Sodium Succinate 125 mg 08/18/18 15:11 08/19/18 05:58 Solu-Medrol IV 125 mg Q8HR JEFFERY Administration Miscellaneous Medication 500 mcg 08/17/18 20:45 Roflumilast [Daliresp] PO QDAY JEFFERY Montelukast Sodium 10 mg 08/17/18 22:00 08/18/18 21:58 Singulair PO 10 mg HS JEFFERY Administration Morphine Sulfate 2 mg 08/17/18 20:42 Morphine IV Q4H PRN Pain, Moderate (4-6) Ondansetron HCl 4 mg 08/17/18 20:42 Zofran IV Q8H PRN Nausea And Vomiting Oxycodone/Acetaminophen 1 tab 08/17/18 20:42 Percocet 5/325 PO Q6H PRN Pain, Moderate (4-6) Sodium Chloride 10 ml 08/17/18 22:00 08/18/18 22:00 Sodium Chloride Flush Syringe 10 Ml IV 10 ml BID JEFFERY Administration Sodium Chloride 10 ml 08/17/18 20:42 Sodium Chloride Flush Syringe 10 Ml IV PRN PRN LINE FLUSH
--- NOTE | 2018-08-19 08:44 | Progress Note ---
Assessment and Plan Patient is still complaining of wheezing. Patient breathing slightly better than yesterday. Patient is on 3L O2, saturating 98%. Patient ABGs still pending. Because of patient's wheezing she says she cannot lay down flat. Cancelling the CT scan of chest for today. Patient's D-dimer is within normal limits. - Patient Problems (1) Acute exacerbation of COPD with asthma Current Visit: Yes Status: Acute Plan to address problem: O2 3 litres via nasal canula. Albuterol/atrovent aerosol treatments q 6 hours. Continue I/V solumedrol. Continue Levaquin Continue S/C Lovenox. ABGs on room air. (2) Acute respiratory failure with hypoxia Current Visit: Yes Status: Acute Plan to address problem: O2 3 litres via nasal canula. BIPAP stand by in the room. Albuterol/atrovent aerosol treatments q 6 hours. Continue I/V solumedrol. Continue Levaquin Continue S/C Lovenox. Subjective Date of service: 08/19/18 Interval history: Patient is still complaining of wheezing. Patient breathing slightly better than yesterday. Patient is on 3L O2, saturating 98%. Patient ABGs still pending. Because of patient's wheezing she says she cannot lay down flat. Cancelling the CT scan of chest for today. Patient's D-dimer is within normal limits. Objective Vital Signs - 12hr 08/18/18 08/18/18 08/18/18 22:00 22:05 23:05 Temperature Pulse Rate Pulse Rate [ Anterior Bilateral] Respiratory 20 20 20 Rate Respiratory Rate [Anterior Bilateral] Respiratory 20 Rate [Head] Blood Pressure Blood Pressure [Left] O2 Sat by Pulse 96 Oximetry 08/19/18 08/19/18 08/19/18 01:26 01:35 01:36 Temperature Pulse Rate 103 H 98 H Pulse Rate [ 98 H Anterior Bilateral] Respiratory 21 Rate Respiratory 24 Rate [Anterior Bilateral] Respiratory Rate [Head] Blood Pressure Blood Pressure [Left] O2 Sat by Pulse 97 98 Oximetry 08/19/18 08/19/18 08/19/18 01:46 02:28 02:30 Temperature 97.3 F L Pulse Rate 91 H Pulse Rate [ 110 H Anterior Bilateral] Respiratory 20 Rate Respiratory 22 Rate [Anterior Bilateral] Respiratory Rate [Head] Blood Pressure 148/106 Blood Pressure 148/106 [Left] O2 Sat by Pulse 100 Oximetry 08/19/18 08/19/18 08/19/18 06:14 07:30 07:40 Temperature Pulse Rate 101 H Pulse Rate [ 90 94 H Anterior Bilateral] Respiratory Rate Respiratory 20 20 Rate [Anterior Bilateral] Respiratory Rate [Head] Blood Pressure 144/91 Blood Pressure [Left] O2 Sat by Pulse 99 Oximetry 08/19/18 08:02 Temperature 98.6 F Pulse Rate 104 H Pulse Rate [ Anterior Bilateral] Respiratory 26 H Rate Respiratory Rate [Anterior Bilateral] Respiratory Rate [Head] Blood Pressure 136/93 Blood Pressure [Left] O2 Sat by Pulse 98 Oximetry Constitutional: no acute distress, alert Eyes: non-icteric ENT: oropharynx moist Neck: supple, no JVD Ascultation: Bilateral: wheezes (Diffuse bilateral wheezing.), rhonchi (Bilateral rhonchi.) Cardiovascular: regular rate and rhythm Gastrointestinal: normoactive bowel sounds, soft, non-tender Integumentary: normal Extremities: no cyanosis, no edema Neurologic: normal mental status, non-focal exam, pupils equal and round, CN II- XII normal Psychiatric: mood appropriate CBC and BMP: 08/18/18 11:40 08/18/18 11:40 Abnormal lab findings: Abnormal Labs 08/17/18 08/17/18 08/18/18 17:54 17:54 11:40 Hgb 14.5 H MCHC 35 H RDW 15.4 H 15.4 H Lymph % (Auto) 9.2 L [place] % (Auto) 11.3 H Lymph # 0.5 L Seg Neutrophils % 86.7 H Potassium 3.3 L Chloride 96.4 L Glucose 120 H 08/18/18 11:40 Hgb MCHC RDW Lymph % (Auto) [place] % (Auto) Lymph # Seg Neutrophils % Potassium Chloride 95.2 L Glucose 192 H
[2018-08-19] MEDS: LEVAQUIN 750MG/150ML 750 MG/150 ML BAG IV SCH (09:24)
[2018-08-19] MEDS: SODIUM CHLORIDE FLUSH SYRINGE 10 ML IV SCH ×2 (09:26→21:56)
[2018-08-19] MEDS: NON-FORMULARY (Roflumilast [Daliresp] 500 MCG) PO SCH (10:00)
[2018-08-19] MEDS: TYLENOL PO PRN (12:16)
[2018-08-19] MEDS: SODIUM CHLORIDE FLUSH SYRINGE 10 ML IV PRN (14:33)
[2018-08-19] MEDS: COZAAR PO SCH (14:41)
[2018-08-19] MEDS: HCTZ PO SCH (14:41)
[2018-08-19] MEDS ORDERED: DALIRESP 500 MCG PO SCH (14:45)
[2018-08-19] MEDS: NACL 0.9% 1000 ML 1,000 ML IV SCH (17:42)
[2018-08-19] MEDS: SINGULAIR PO SCH (21:55)
[2018-08-19] MEDS: LOVENOX SUB-Q SCH (22:39)
[2018-08-20] MEDS: ATIVAN PO PRN (03:00)
[2018-08-20] MEDS: SOLU-Medrol IV SCH ×3 (05:01→22:32)
[2018-08-20] MEDS: DUONEB *Not for PRN Use IH SCH ×4 (07:43→20:44)
[2018-08-20] MEDS: BROVANA NEBU IH SCH ×2 (07:45→20:44)
[2018-08-20] MEDS: PULMICORT IH SCH ×2 (07:47→20:44)
[2018-08-20] MEDS: SODIUM CHLORIDE FLUSH SYRINGE 10 ML IV SCH ×2 (09:22→22:33)
[2018-08-20] MEDS: LEVAQUIN PO SCH (09:22)
[2018-08-20] MEDS: HCTZ PO SCH (09:25)
[2018-08-20] MEDS: COZAAR PO SCH (09:26)
[2018-08-20] MEDS: NON-FORMULARY (Roflumilast [Daliresp] 500 MCG) PO SCH ×2 (09:42→22:33)
[2018-08-20] MEDS ORDERED: INCRUSE ELLIPTA IH SCH (10:00)
--- NOTE | 2018-08-20 11:54 | Progress Note ---
Assessment and Plan Patient breathing better than yesterday. Much less wheezing.Patient is on 3L O2, saturating 97%. Patient refusing ABGs. Patients D dimer with in normal limits. Obtaining CAT scan Of chest for prominent right hilum. - Patient Problems (1) Acute exacerbation of COPD with asthma Current Visit: Yes Status: Acute Plan to address problem: O2 3 litres via nasal canula. Albuterol/atrovent aerosol treatments q 6 hours. Continue I/V solumedrol. Continue Levaquin Continue S/C Lovenox. (2) Acute respiratory failure with hypoxia Current Visit: Yes Status: Acute Plan to address problem: O2 3 litres via nasal canula. BIPAP stand by in the room. Albuterol/atrovent aerosol treatments q 6 hours. Continue I/V solumedrol. Continue Levaquin Continue S/C Lovenox. Subjective Date of service: 08/20/18 Interval history: Patient breathing better than yesterday. Much less wheezing.Patient is on 3L O2, saturating 97%. Patient refusing ABGs. Patients D dimer with in normal limits. Obtaining CAT scan Of chest for prominent right hilum. Objective Vital Signs - 12hr 08/20/18 08/20/18 08/20/18 02:27 02:55 04:53 Temperature 97.8 F Pulse Rate 104 H Pulse Rate [ 96 H 97 H Anterior Bilateral] Pulse Rate [ Throughout] Respiratory 18 Rate Respiratory 24 20 Rate [Anterior Bilateral] Respiratory Rate [Head] Respiratory Rate [ Throughout] Blood Pressure 149/82 O2 Sat by Pulse 98 Oximetry 08/20/18 08/20/18 08/20/18 07:27 07:48 07:54 Temperature 97.9 F Pulse Rate 98 H Pulse Rate [ 106 H Anterior Bilateral] Pulse Rate [ 102 H Throughout] Respiratory 22 Rate Respiratory 19 Rate [Anterior Bilateral] Respiratory Rate [Head] Respiratory 18 Rate [ Throughout] Blood Pressure 143/96 O2 Sat by Pulse 100 100 Oximetry 08/20/18 08/20/18 08:37 10:00 Temperature Pulse Rate 114 H Pulse Rate [ Anterior Bilateral] Pulse Rate [ Throughout] Respiratory 21 19 Rate Respiratory Rate [Anterior Bilateral] Respiratory 20 Rate [Head] Respiratory Rate [ Throughout] Blood Pressure 149/100 O2 Sat by Pulse 98 100 Oximetry Constitutional: no acute distress, alert Eyes: non-icteric ENT: oropharynx moist Neck: supple, no JVD Ascultation: Bilateral: wheezes (Diffuse bilateral wheezing.), rhonchi (Bilateral rhonchi.) Cardiovascular: regular rate and rhythm Gastrointestinal: normoactive bowel sounds, soft, non-tender Integumentary: normal Extremities: no cyanosis, no edema Neurologic: normal mental status, non-focal exam, pupils equal and round, CN II- XII normal Psychiatric: mood appropriate CBC and BMP: 08/18/18 11:40 08/18/18 11:40 ABG, PT/INR, D-dimer: PT/INR, D-dimer 231.72 ng/mlDDU (0-234) 08/19/18 08:15 Abnormal lab findings: Abnormal Labs 08/17/18 08/17/18 08/18/18 17:54 17:54 11:40 Hgb 14.5 H MCHC 35 H RDW 15.4 H 15.4 H Lymph % (Auto) 9.2 L [place] % (Auto) 11.3 H Lymph # 0.5 L Seg Neutrophils % 86.7 H Potassium 3.3 L Chloride 96.4 L Glucose 120 H 08/18/18 11:40 Hgb MCHC RDW Lymph % (Auto) [place] % (Auto) Lymph # Seg Neutrophils % Potassium Chloride 95.2 L Glucose 192 H
--- NOTE | 2018-08-20 12:19 | Progress Note ---
Assessment and Plan Assessment and plan: SOB and wheezing for 3 to 4 days History of present illness: 68-year-old female with history of asthma and COPD presents with severe shortness of breath and wheezing for the past 3 to days. She is from [facility] visiting her sister in [place]. She presumes that her sister's dog's dander as the cause of this exacerbation. She normally requires a prednisone taper when she has severe attack. Her contamination consultant is in [place] where she resides. She is not dependent on oxygen. She's has cough of mucoid sputum.. She denies fever. Last use of antibiotics one week ago for a dental procedure. -She has had FEV1 of 0.6, complaining of recent exposure to pet hair and tobacco smoke from secondhand smoke Past Medical History Previous Medical History?: Yes Asthma: Yes COPD: Yes Acute exacerbation of severe COPD with asthma Continue steroids and nebulizers, rescue BiPAP as needed -Continue oxygen supplementation, contamination consultant input appreciated -Case discussed with her contamination consultant, Dr. Mckeon in [place], obtain CT chest with contrast Acute respiratory failure with hypoxia Continue to supplement oxygen (Hypokalemia Potassium supplemented DVT prophylaxis On Lovenox and GI prophylaxis History Interval history: Review of systems Constitutional: No fevers, no malaise, no joint pains CVS: No chest pain, no orthopnea, no pedal edema GI: No abdominal pain, no diarrhea, no vomiting, no constipation Respiratory: Continues to complain of shortness of breath, wheezing, and cough Hospitalist Physical - Physical exam Narrative exam: General.: Appears well, no distress, nontoxic HEENT: Moist mucous membranes, extraocular muscles intact, no lymphadenopathy Neck: supple Cardiac: S1-S2 heard Lungs: Diminished air entry, wheezing throughout Abdomen: soft , nontender, nondistended, bowel sounds positive Extremities: no edema clubbing or cyanosis Skin: no rash or lesions Neurologic: no gross focal deficits Psych: calm, and cooperative - Constitutional Vitals: Temp Pulse Resp BP Pulse Ox 97.9 F 114 H 20 149/100 100 08/20/18 07:27 08/20/18 08:37 08/20/18 10:00 08/20/18 08:37 08/20/18 10:00 General appearance: Present: mild distress, well-nourished Results - Labs CBC & Chem 7: 08/18/18 11:40 08/18/18 11:40 Labs: Laboratory Last Values WBC 4.9 K/mm3 (4.5-11.0) 08/18/18 11:40 RBC 4.48 M/mm3 (3.65-5.03) 08/18/18 11:40 Hgb 14.1 gm/dl (10.1-14.3) 08/18/18 11:40 Hct 42.0 % (30.3-42.9) 08/18/18 11:40 MCV 94 fl (79-97) 08/18/18 11:40 MCH 32 pg (28-32) 08/18/18 11:40 MCHC 34 % (30-34) 08/18/18 11:40 RDW 15.4 % (13.2-15.2) H 08/18/18 11:40 Plt Count 240 K/mm3 (140-440) 08/18/18 11:40 Lymph % (Auto) 9.2 % (13.4-35.0) L 08/18/18 11:40 [place] % (Auto) 3.9 % (0.0-7.3) 08/18/18 11:40 Eos % (Auto) 0.0 % (0.0-4.3) 08/18/18 11:40 Baso % (Auto) 0.2 % (0.0-1.8) 08/18/18 11:40 Lymph # 0.5 K/mm3 (1.2-5.4) L 08/18/18 11:40 [place] # 0.2 K/mm3 (0.0-0.8) 08/18/18 11:40 Eos # 0.0 K/mm3 (0.0-0.4) 08/18/18 11:40 Baso # 0.0 K/mm3 (0.0-0.1) 08/18/18 11:40 Seg Neutrophils % 86.7 % (40.0-70.0) H 08/18/18 11:40 Seg Neutrophils # 4.2 K/mm3 (1.8-7.7) 08/18/18 11:40 231.72 ng/mlDDU (0-234) 08/19/18 08:15 Sodium 137 mmol/L (137-145) 08/18/18 11:40 Potassium 4.3 mmol/L (3.6-5.0) D 08/18/18 11:40 Chloride 95.2 mmol/L (98-107) L 08/18/18 11:40 Carbon Dioxide 28 mmol/L (22-30) 08/18/18 11:40 18 mmol/L 08/18/18 11:40 BUN 9 mg/dL (7-17) 08/18/18 11:40 0.7 mg/dL (0.7-1.2) 08/18/18 11:40 Estimated GFR > 60 ml/min 08/18/18 11:40 13 % 08/18/18 11:40 Glucose 192 mg/dL (65-100) H 08/18/18 11:40 5.5 % (4-6) 08/17/18 20:55 Calcium 9.4 mg/dL (8.4-10.2) 08/18/18 11:40 0.20 mg/dL (0.1-1.2) 08/18/18 11:40 AST 26 units/L (5-40) 08/18/18 11:40 ALT 9 units/L (7-56) 08/18/18 11:40 73 units/L (35-129) 08/18/18 11:40 7.3 g/dL (6.3-8.2) 08/18/18 11:40 4.2 g/dL (3.9-5) 08/18/18 11:40 1.4 % 08/18/18 11:40 Active Medications - Current Medications Current Medications: Generic Name Dose Route Start Last Admin Trade Name Freq PRN Reason Stop Dose Admin Acetaminophen 650 mg 08/17/18 20:42 08/19/18 12:16 Tylenol PO 650 mg Q4H PRN Administration Pain MILD(1-3)/Fever >100.5/LEMA Albuterol 2.5 mg 08/17/18 20:46 08/19/18 01:34 Proventil IH 2.5 mg Q4HRT PRN Administration Shortness Of Breath Albuterol/Ipratropium 1 ampul 08/18/18 08:00 08/20/18 07:43 Duoneb *Not For Prn Use* IH Not Given QIDRT JEFFERY Arformoterol Tartrate 15 mcg 08/17/18 21:00 08/20/18 07:45 Brovana Nebu IH 15 mcg Q12HRT JEFFERY Administration Benzonatate 100 mg 08/20/18 14:00 Tessalon Perles PO Q8HR [facility] Budesonide 0.5 mg 08/17/18 21:00 08/20/18 07:47 Pulmicort IH 0.5 mg Q12HRT JEFFERY Administration Enoxaparin Sodium 40 mg 08/18/18 22:00 08/19/18 22:39 Lovenox SUB-Q Not Given QDAY@2200 JEFFERY Guaifenesin 20 ml 08/20/18 12:04 Guaifenesin Dm Syrup PO Q4H PRN Cough Hydrochlorothiazide 12.5 mg 08/19/18 15:00 08/20/18 09:25 Hctz PO Not Given QDAY [facility] Sodium Chloride 1,000 mls @ 42 mls/hr 08/17/18 21:00 08/19/18 17:42 Nacl 0.9% 1000 Ml IV 42 mls/hr DIRECT JEFFERY Administration Levofloxacin 750 mg 08/20/18 10:00 08/20/18 09:22 Levaquin PO 750 mg DAILY [facility] Administration Lorazepam 0.5 mg 08/19/18 02:06 08/20/18 03:00 Ativan PO 0.5 mg Q6H PRN Administration Anxiety Losartan Potassium 100 mg 08/19/18 15:00 08/20/18 09:26 Cozaar PO Not Given QDAY [facility] Methylprednisolone Sodium Succinate 125 mg 08/18/18 15:11 08/20/18 05:01 Solu-Medrol IV 125 mg Q8HR [facility] Administration Miscellaneous Medication 500 mcg 08/17/18 20:45 08/20/18 09:42 Roflumilast [Daliresp] PO Not Given QDAY [facility] Miscellaneous Medication 1 puff 08/20/18 10:00 Incruse Ellipta IH DAILY [facility] Miscellaneous Medication 500 mcg 08/19/18 14:45 Daliresp PO DAILY [facility] Montelukast Sodium 10 mg 08/17/18 22:00 08/19/18 21:55 Singulair PO 10 mg HS JEFFERY Administration Morphine Sulfate 2 mg 08/17/18 20:42 Morphine IV Q4H PRN Pain, Moderate (4-6) Ondansetron HCl 4 mg 08/17/18 20:42 Zofran IV Q8H PRN Nausea And Vomiting Oxycodone/Acetaminophen 1 tab 08/17/18 20:42 Percocet 5/325 PO Q6H PRN Pain, Moderate (4-6) Sodium Chloride 10 ml 08/17/18 22:00 08/20/18 09:22 Sodium Chloride Flush Syringe 10 Ml IV 10 ml BID JEFFERY Administration Sodium Chloride 10 ml 08/17/18 20:42 08/19/18 14:33 Sodium Chloride Flush Syringe 10 Ml IV 10 ml PRN PRN Administration LINE FLUSH Nutrition/Malnutrition Assess - Dietary Evaluation Nutrition/Malnutrition Findings: Nutrition Notes Start: 08/20/18 09:22 Freq: Status: Active Protocol: Document 08/20/18 09:22 LP (Rec: 08/20/18 09:23 LP [id number]) Nutrition Notes Initial or Follow up Brief Note Subjective/Other Information RN screened for vegetarian diet and not having many options. Pt states she was told there were not veggie burgers. Talked to kitchen and gathered pt food preferences. Nutrition Intervention Follow-Up By: 08/22/18 Additional Comments Follow for honor of food preferences
[2018-08-20] MEDS: TESSALON PERLES PO SCH ×2 (13:01→22:32)
[2018-08-20] MEDS: SODIUM CHLORIDE FLUSH SYRINGE 10 ML IV PRN (13:03)
[2018-08-20] MEDS: ATIVAN IV PRN ×2 (16:43→22:50)
[2018-08-20] MEDS: PROVENTIL IH PRN (17:11)
--- NOTE | 2018-08-20 19:36 | Cat Scan Report ---
PROCEDURE: CT angiogram chest with contrast. TECHNIQUE: Computerized tomographic angiography of the chest was performed after the IV injection of iodinated nonionic contrast including image processing. The image data was postprocessed using 2-di mensional multiplanar reformatted (MPR) and 3-dimensional (MIP and/or volume rendered) techniques. Au tomated exposure control, adjustment of mA and/or kV according to patient size, or iterative reconstr uction dose optimization techniques were utilized. CT DOSE LENGTH PRODUCT: 533.4 mGycm HISTORY: Shortness of breath. COMPARISONS: None. FINDINGS: The trachea and central bronchi appear normal. The lungs are clear and well expanded. There are no si gns of pneumonia. There are no pleural effusions. The thoracic aorta has a normal caliber without jorge dence of dissection. The pulmonary arteries enhance normally. There are no filling defects to indicat e pulmonary embolism. There is no mediastinal adenopathy. The heart size is normal. There are several hepatic cysts. The thoracic skeleton appears intact. IMPRESSION: No evidence of pulmonary embolism. Numerous hepatic cysts. This document is electronically signed by Arpit Etienne MD., Aug 20 2018 07:33:59 PM ET
[2018-08-20] MEDS: LOVENOX SUB-Q SCH (22:32)
[2018-08-20] MEDS: SINGULAIR PO SCH (22:32)
[2018-08-21] MEDS: PROVENTIL IH PRN ×2 (03:47→08:13)
[2018-08-21] MEDS: SOLU-Medrol IV SCH ×3 (05:31→22:42)
[2018-08-21] MEDS: TESSALON PERLES PO SCH ×3 (05:31→22:42)
[2018-08-21] MEDS: DUONEB *Not for PRN Use IH SCH ×4 (08:01→20:29)
[2018-08-21] MEDS: BROVANA NEBU IH SCH ×2 (08:01→20:30)
[2018-08-21] MEDS: PULMICORT IH SCH ×2 (08:02→20:30)
[2018-08-21] MEDS: HCTZ PO SCH (09:36)
[2018-08-21] MEDS: COZAAR PO SCH (09:36)
[2018-08-21] MEDS: NON-FORMULARY (Roflumilast [Daliresp] 500 MCG) PO SCH (09:37)
[2018-08-21] MEDS: LEVAQUIN PO SCH (09:37)
[2018-08-21] MEDS: SODIUM CHLORIDE FLUSH SYRINGE 10 ML IV SCH ×2 (09:38→22:42)
--- NOTE | 2018-08-21 12:36 | Progress Note ---
Assessment and Plan Acute exacerbation of COPD Acute on Chronic hypercapnic hypoxemic respiratory failure HTN Hyperglycemia - continue supplemental oxygen as needed to keep sat's 88-92% acutely (restrictive therapy) - continue bronchodilators (MARCE & LABA) with pulmonary hygiene per RT - continue systemic steroids with slow taper - continue BIPAP scheduled qhs with prn daytime use - complete empiric CAP AB's course - continue singulair scheduled qhs - CTA negative for P.E. and D-dimer WNL - continue other care per attending / other consultants .. watch closely on [facility] unit Subjective Date of service: 08/21/18 Principal diagnosis: AE-COPD; Ac on Ch hypercapnic hypoxemic resp failure; HTN Interval history: Patient is seen today for: Acute exacerbation of COPD; Acute on Chronic hypercapnic hypoxemic respiratory failure; HTN Seen and examined at bedside; 24hour events reviewed; nursing and respiratory ca re staff consulted; no adverse overnight events reported to me; resting in bed; mildly increased resp effort; still wheezing; no accessory muscle use; denies acute chest pains or palpitations; No N/V/F/C Objective Vital Signs - 12hr 08/21/18 08/21/18 08/21/18 02:37 03:35 03:48 Temperature 98.5 F Pulse Rate 106 H Pulse Rate [ Anterior Bilateral Throughout] Pulse Rate [ 121 H 118 H Throughout] Respiratory 24 Rate Respiratory Rate [Anterior Bilateral Throughout] Respiratory 32 H 22 Rate [ Throughout] Blood Pressure 138/75 Blood Pressure [Left] O2 Sat by Pulse 97 95 Oximetry 08/21/18 08/21/18 08/21/18 07:00 07:36 08:00 Temperature 98.8 F 98.8 F Pulse Rate 119 H Pulse Rate [ 115 H Anterior Bilateral Throughout] Pulse Rate [ Throughout] Respiratory 28 H 28 H Rate Respiratory 17 Rate [Anterior Bilateral Throughout] Respiratory Rate [ Throughout] Blood Pressure 150/103 Blood Pressure 145/101 [Left] O2 Sat by Pulse 95 Oximetry 08/21/18 08/21/18 08/21/18 08:03 08:14 09:36 Temperature Pulse Rate 115 H Pulse Rate [ 118 H Anterior Bilateral Throughout] Pulse Rate [ Throughout] Respiratory Rate Respiratory 17 Rate [Anterior Bilateral Throughout] Respiratory Rate [ Throughout] Blood Pressure 150/103 Blood Pressure [Left] O2 Sat by Pulse 97 Oximetry 08/21/18 10:00 Temperature Pulse Rate Pulse Rate [ Anterior Bilateral Throughout] Pulse Rate [ Throughout] Respiratory 22 Rate Respiratory Rate [Anterior Bilateral Throughout] Respiratory Rate [ Throughout] Blood Pressure Blood Pressure [Left] O2 Sat by Pulse Oximetry Constitutional: alert, appears uncomfortable, other (elderly looking AAF) Eyes: non-icteric ENT: oropharynx moist, other (mallampati 3) Neck: supple, no JVD, other (no thyromegaly) Effort: mildly labored Ascultation: Bilateral: wheezes (Diffuse bilateral wheezing.), other (prolonged exp phase) Percussion: Bilateral: not dull Cardiovascular: regular rate and rhythm, other (No R/M) Gastrointestinal: normoactive bowel sounds, soft, non-tender, non-distended Integumentary: normal Extremities: no cyanosis, no edema, pulses normal, no ischemia or petechiae Neurologic: normal mental status, non-focal exam, pupils equal and round, CN II- XII normal, motor strength normal and Psychiatric: mood appropriate, affect normal CBC and BMP: 08/18/18 11:40 08/18/18 11:40 ABG, PT/INR, D-dimer: ABG POC ABG pH 7.362 (7.35-7.45) 08/20/18 17:59 POC ABG pCO2 63.0 (35-45) H 08/20/18 17:59 POC ABG HCO3 35.7 (22-26 mml/L) 08/20/18 17:59 POC ABG Total CO2 38 (23-27mmol/L) 08/20/18 17:59 POC ABG O2 Sat 66 08/20/18 17:59 PT/INR, D-dimer 231.72 ng/mlDDU (0-234) 08/19/18 08:15 Abnormal lab findings: Abnormal Labs 08/17/18 08/17/18 08/18/18 17:54 17:54 11:40 Hgb 14.5 H MCHC 35 H RDW 15.4 H 15.4 H Lymph % (Auto) 9.2 L [place] % (Auto) 11.3 H Lymph # 0.5 L Seg Neutrophils % 86.7 H POC ABG pCO2 Potassium 3.3 L Chloride 96.4 L Glucose 120 H 08/18/18 08/20/18 11:40 17:59 Hgb MCHC RDW Lymph % (Auto) [place] % (Auto) Lymph # Seg Neutrophils % POC ABG pCO2 63.0 H Potassium Chloride 95.2 L Glucose [address] scan - chest: image reviewed (severe bullous and paraseptal emphysema; liver cysts) Allied health notes reviewed: nursing
[2018-08-21] MEDS: SODIUM CHLORIDE FLUSH SYRINGE 10 ML IV PRN (15:57)
[2018-08-21] MEDS: TYLENOL PO PRN (16:03)
[2018-08-21] MEDS: LOVENOX SUB-Q SCH (22:41)
[2018-08-21] MEDS: SINGULAIR PO SCH (22:41)
[2018-08-21] MEDS: ATIVAN PO PRN (22:51)
[2018-08-22] MEDS: TESSALON PERLES PO SCH ×3 (05:42→22:39)
[2018-08-22] MEDS: SOLU-Medrol IV SCH ×3 (05:43→20:09)
[2018-08-22] MEDS: BROVANA NEBU IH SCH ×2 (09:21→21:36)
[2018-08-22] MEDS: PULMICORT IH SCH ×2 (09:21→21:36)
[2018-08-22] MEDS: DUONEB *Not for PRN Use IH SCH ×4 (09:21→21:36)
[2018-08-22] MEDS: NON-FORMULARY (Roflumilast [Daliresp] 500 MCG) PO SCH (10:49)
[2018-08-22] MEDS: COZAAR PO SCH (10:50)
[2018-08-22] MEDS: HCTZ PO SCH (10:51)
[2018-08-22] MEDS: LEVAQUIN PO SCH (10:51)
[2018-08-22] MEDS: SODIUM CHLORIDE FLUSH SYRINGE 10 ML IV SCH ×2 (10:52→22:39)
--- NOTE | 2018-08-22 12:49 | Progress Note ---
Assessment and Plan Acute exacerbation of COPD Acute on Chronic hypercapnic hypoxemic respiratory failure HTN Hyperglycemia - transfer to IMCU - place on continuous BIPAP therapy - reduce solumedrol dose but increase frequency - continue supplemental oxygen as needed to keep sat's 88-92% acutely (restrictive therapy) - continue bronchodilators (MARCE & LABA) with pulmonary hygiene per RT - continue systemic steroids with slow taper - continue BIPAP scheduled qhs with prn daytime use - complete empiric CAP AB's course - continue singulair scheduled qhs - CTA negative for P.E. and D-dimer WNL - continue other care per attending / other consultants ..... re-evaluate prn through the day ... if fails BIPAP will need intubation .....38' care time with > 15 minutes spent at bedside Subjective Date of service: 08/22/18 Principal diagnosis: AE-COPD; Ac on Ch hypercapnic hypoxemic resp failure; HTN Interval history: Patient is seen today for: Acute exacerbation of COPD; Acute on Chronic hypercapnic hypoxemic respiratory failure; HTN Seen and examined at bedside; 24hour events reviewed; nursing and respiratory care staff consulted; no adverse overnight events reported to me; resting in bed; moderately increased resp effort; still wheezing; + accessory muscle use today; anxious; denies chest pains; NO N/V/F/C Objective Vital Signs - 12hr 08/22/18 08/22/18 08/22/18 02:22 07:47 08:35 Temperature 97.9 F 98.2 F Pulse Rate 112 H 101 H Pulse Rate [ Anterior Bilateral Throughout] Respiratory 24 24 24 Rate Respiratory Rate [Anterior Bilateral Throughout] Blood Pressure 173/118 Blood Pressure 160/122 [Left] O2 Sat by Pulse 91 95 Oximetry 08/22/18 08/22/18 08/22/18 09:23 09:43 10:50 Temperature Pulse Rate Pulse Rate [ 106 H 113 H Anterior Bilateral Throughout] Respiratory Rate Respiratory 20 22 Rate [Anterior Bilateral Throughout] Blood Pressure 173/118 Blood Pressure [Left] O2 Sat by Pulse 96 Oximetry 08/22/18 08/22/18 08/22/18 12:16 12:26 12:30 Temperature Pulse Rate 114 H Pulse Rate [ 105 H 116 H Anterior Bilateral Throughout] Respiratory 23 Rate Respiratory 20 24 Rate [Anterior Bilateral Throughout] Blood Pressure Blood Pressure [Left] O2 Sat by Pulse 100 Oximetry Constitutional: alert, appears uncomfortable, other (elderly looking AAF) Eyes: non-icteric ENT: oropharynx moist, other (mallampati 3) Neck: supple, no JVD, other (no thyromegaly) Effort: mildly labored Ascultation: Bilateral: wheezes (Diffuse bilateral wheezing.), rhonchi (B ilateral rhonchi.), other (prolonged exp phase) Percussion: Bilateral: not dull Cardiovascular: regular rate and rhythm, other (No R/M) Gastrointestinal: normoactive bowel sounds, soft, non-tender, non-distended Integumentary: normal Extremities: no cyanosis, no edema, pulses normal, no ischemia or petechiae Neurologic: normal mental status, non-focal exam, pupils equal and round, CN II- XII normal, motor strength normal and Psychiatric: mood appropriate, affect normal CBC and BMP: 08/18/18 11:40 08/18/18 11:40 ABG, PT/INR, D-dimer: ABG POC ABG pH 7.362 (7.35-7.45) 08/20/18 17:59 POC ABG pCO2 63.0 (35-45) H 08/20/18 17:59 POC ABG HCO3 35.7 (22-26 mml/L) 08/20/18 17:59 POC ABG Total CO2 38 (23-27mmol/L) 08/20/18 17:59 POC ABG O2 Sat 66 08/20/18 17:59 PT/INR, D-dimer 231.72 ng/mlDDU (0-234) 08/19/18 08:15 Abnormal lab findings: Abnormal Labs 08/17/18 08/17/18 08/18/18 17:54 17:54 11:40 Hgb 14.5 H MCHC 35 H RDW 15.4 H 15.4 H Lymph % (Auto) 9.2 L [place] % (Auto) 11.3 H Lymph # 0.5 L Seg Neutrophils % 86.7 H POC ABG pCO2 Potassium 3.3 L Chloride 96.4 L Glucose 120 H 08/18/18 08/20/18 11:40 17:59 Hgb MCHC RDW Lymph % (Auto) [place] % (Auto) Lymph # Seg Neutrophils % POC ABG pCO2 63.0 H Potassium Chloride 95.2 L Glucose [address] scan - chest: image reviewed Allied health notes reviewed: nursing
[2018-08-22] MEDS: SINGULAIR PO SCH (22:38)
[2018-08-22] MEDS: LOVENOX SUB-Q SCH (22:38)
[2018-08-23] MEDS: SOLU-Medrol IV SCH ×4 (00:06→18:12)
[2018-08-23] MEDS: TESSALON PERLES PO SCH ×3 (05:48→21:06)
[2018-08-23] MEDS: BROVANA NEBU IH SCH ×2 (09:10→20:34)
[2018-08-23] MEDS: PULMICORT IH SCH ×2 (09:10→20:33)
[2018-08-23] MEDS: DUONEB *Not for PRN Use IH SCH ×4 (09:11→20:33)
[2018-08-23] MEDS: HCTZ PO SCH (09:53)
[2018-08-23] MEDS: COZAAR PO SCH (09:53)
[2018-08-23] MEDS: LEVAQUIN PO SCH (09:53)
[2018-08-23] MEDS: SODIUM CHLORIDE FLUSH SYRINGE 10 ML IV SCH ×2 (09:54→21:08)
[2018-08-23] MEDS: NON-FORMULARY (Roflumilast [Daliresp] 500 MCG) PO SCH (10:00)
--- NOTE | 2018-08-23 11:49 | Progress Note ---
Assessment and Plan - Patient Problems (1) Acute exacerbation of COPD with asthma Current Visit: Yes Status: Acute Plan to address problem: Patient initiated on IV Levaquin IV Solumedrol and Duonebs /Albuterol Bipap if necessary Intubation if necessary Improving (2) Acute respiratory failure with hypoxia Current Visit: Yes Status: Acute Plan to address problem: Patient Hypoxic initially Refuses ABG Patient initiated on IV Levaquin IV Solumedrol and Duonebs /Albuterol Bipap if necessary Intubation if necessary Improving (3) Hypokalemia Current Visit: Yes Status: Acute Plan to address problem: Potassium supplemented (4) DVT prophylaxis Current Visit: Yes Status: Acute Plan to address problem: On Lovenox and GI prophylaxis. Subjective Date of service: 08/21/18 Principal diagnosis: AE-COPD; Ac on Ch hypercapnic hypoxemic resp failure; HTN Interval history: Symptomatically slightly better Objective - Constitutional Vitals: Vital Signs - 12hr 08/23/18 08/23/18 08/23/18 00:00 01:00 02:00 Temperature Pulse Rate 79 78 87 Pulse Rate [ Anterior Bilateral Throughout] Pulse Rate [ 112 H Apical] Respiratory 19 20 19 Rate Respiratory Rate [Anterior Bilateral Throughout] Blood Pressure 144/93 135/94 136/93 O2 Sat by Pulse 96 97 97 Oximetry 08/23/18 08/23/18 08/23/18 03:00 03:23 04:00 Temperature 99 F Pulse Rate 82 81 Pulse Rate [ Anterior Bilateral Throughout] Pulse Rate [ 71 Apical] Respiratory 20 20 Rate Respiratory Rate [Anterior Bilateral Throughout] Blood Pressure 140/107 147/101 O2 Sat by Pulse 98 96 Oximetry 08/23/18 08/23/18 08/23/18 05:00 06:00 07:00 Temperature Pulse Rate 72 92 H 66 Pulse Rate [ Anterior Bilateral Throughout] Pulse Rate [ Apical] Respiratory 18 26 H 18 Rate Respiratory Rate [Anterior Bilateral Throughout] Blood Pressure 134/80 154/113 137/85 O2 Sat by Pulse 97 98 100 Oximetry 08/23/18 08/23/18 08/23/18 08:00 08:01 09:00 Temperature 97.9 F Pulse Rate 80 69 Pulse Rate [ Anterior Bilateral Throughout] Pulse Rate [ 71 Apical] Respiratory 19 16 16 Rate Respiratory Rate [Anterior Bilateral Throughout] Blood Pressure 150/107 144/112 O2 Sat by Pulse 98 100 100 Oximetry 08/23/18 08/23/18 08/23/18 09:10 09:14 09:40 Temperature Pulse Rate 71 Pulse Rate [ 73 74 Anterior Bilateral Throughout] Pulse Rate [ Apical] Respiratory 21 Rate Respiratory 20 20 Rate [Anterior Bilateral Throughout] Blood Pressure 144/112 O2 Sat by Pulse 98 Oximetry 08/23/18 08/23/18 08/23/18 10:00 10:01 11:01 Temperature Pulse Rate 104 H 108 H Pulse Rate [ Anterior Bilateral Throughout] Pulse Rate [ Apical] Respiratory 24 20 Rate Respiratory Rate [Anterior Bilateral Throughout] Blood Pressure 158/126 117/68 O2 Sat by Pulse 95 96 100 Oximetry General appearance: Present: no acute distress, well-nourished - EENT Eyes: PERRL, EOM intact ENT: hearing intact, clear oral mucosa Ears: bilateral: normal - Neck Neck: supple, normal ROM - Respiratory Respiratory effort: normal Respiratory: bilateral: diminished, rhonchi, wheezing - Breasts Breasts: normal - Cardiovascular Heart rate: 80 Rhythm: regular Heart Sounds: Present: S1 & S2. Absent: gallop, rub Extremities: pulses intact, No edema, normal color, Full ROM - Gastrointestinal General gastrointestinal: Present: soft, non-tender, non-distended, normal bowel sounds - Genitourinary Female genitourinary: deferred, normal - Integumentary Integumentary: clear, warm, dry - Musculoskeletal Musculoskeletal: 1, strength equal bilaterally - Neurologic Neurologic: moves all extremities - Psychiatric Psychiatric: memory intact, appropriate mood/affect, intact judgment & insight - Labs CBC & Chem 7: 08/18/18 11:40 08/18/18 11:40 Labs: Abnormal lab results 08/22/18 Range/Units 13:57 POC ABG pCO2 60.3 H (35-45)
--- NOTE | 2018-08-23 11:50 | Progress Note ---
Assessment and Plan - Patient Problems (1) Acute exacerbation of COPD with asthma Current Visit: Yes Status: Acute Plan to address problem: Patient initiated on IV Levaquin IV Solumedrol and Duonebs /Albuterol Bipap if necessary Intubation if necessary Improving (2) Acute respiratory failure with hypoxia Current Visit: Yes Status: Acute Plan to address problem: Patient Hypoxic initially Refuses ABG Patient initiated on IV Levaquin IV Solumedrol and Duonebs /Albuterol Bipap if necessary Intubation if necessary Improving (3) Hypokalemia Current Visit: Yes Status: Acute Plan to address problem: Potassium supplemented (4) DVT prophylaxis Current Visit: Yes Status: Acute Plan to address problem: On Lovenox and GI prophylaxis. Subjective Date of service: 08/22/18 Principal diagnosis: AE-COPD; Ac on Ch hypercapnic hypoxemic resp failure; HTN Interval history: Symptomatically slightly better Objective - Constitutional Vitals: Vital Signs - 12hr 08/23/18 08/23/18 08/23/18 00:00 01:00 02:00 Temperature Pulse Rate 79 78 87 Pulse Rate [ Anterior Bilateral Throughout] Pulse Rate [ 112 H Apical] Respiratory 19 20 19 Rate Respiratory Rate [Anterior Bilateral Throughout] Blood Pressure 144/93 135/94 136/93 O2 Sat by Pulse 96 97 97 Oximetry 08/23/18 08/23/18 08/23/18 03:00 03:23 04:00 Temperature 99 F Pulse Rate 82 81 Pulse Rate [ Anterior Bilateral Throughout] Pulse Rate [ 71 Apical] Respiratory 20 20 Rate Respiratory Rate [Anterior Bilateral Throughout] Blood Pressure 140/107 147/101 O2 Sat by Pulse 98 96 Oximetry 08/23/18 08/23/18 08/23/18 05:00 06:00 07:00 Temperature Pulse Rate 72 92 H 66 Pulse Rate [ Anterior Bilateral Throughout] Pulse Rate [ Apical] Respiratory 18 26 H 18 Rate Respiratory Rate [Anterior Bilateral Throughout] Blood Pressure 134/80 154/113 137/85 O2 Sat by Pulse 97 98 100 Oximetry 08/23/18 08/23/18 08/23/18 08:00 08:01 09:00 Temperature 97.9 F Pulse Rate 80 69 Pulse Rate [ Anterior Bilateral Throughout] Pulse Rate [ 71 Apical] Respiratory 19 16 16 Rate Respiratory Rate [Anterior Bilateral Throughout] Blood Pressure 150/107 144/112 O2 Sat by Pulse 98 100 100 Oximetry 08/23/18 08/23/18 08/23/18 09:10 09:14 09:40 Temperature Pulse Rate 71 Pulse Rate [ 73 74 Anterior Bilateral Throughout] Pulse Rate [ Apical] Respiratory 21 Rate Respiratory 20 20 Rate [Anterior Bilateral Throughout] Blood Pressure 144/112 O2 Sat by Pulse 98 Oximetry 08/23/18 08/23/18 08/23/18 10:00 10:01 11:01 Temperature Pulse Rate 104 H 108 H Pulse Rate [ Anterior Bilateral Throughout] Pulse Rate [ Apical] Respiratory 24 20 Rate Respiratory Rate [Anterior Bilateral Throughout] Blood Pressure 158/126 117/68 O2 Sat by Pulse 95 96 100 Oximetry General appearance: Present: no acute distress, well-nourished - EENT Eyes: PERRL, EOM intact ENT: hearing intact, clear oral mucosa Ears: bilateral: normal - Neck Neck: supple, normal ROM - Respiratory Respiratory effort: normal Respiratory: bilateral: rhonchi, wheezing - Breasts Breasts: normal - Cardiovascular Heart rate: 78 Rhythm: regular Heart Sounds: Present: S1 & S2. Absent: gallop, rub Extremities: no ischemia, pulses intact, No edema, normal color, Full ROM - Gastrointestinal General gastrointestinal: Present: soft, non-tender, non-distended, normal bowel sounds - Genitourinary Female genitourinary: normal - Integumentary Integumentary: clear, warm, dry - Musculoskeletal Musculoskeletal: 1, strength equal bilaterally - Neurologic Neurologic: moves all extremities - Psychiatric Psychiatric: memory intact, appropriate mood/affect, intact judgment & insight - Allied health notes Allied health notes reviewed: nursing - Labs CBC & Chem 7: 08/18/18 11:40 08/18/18 11:40 Labs: Abnormal lab results 08/22/18 Range/Units 13:57 POC ABG pCO2 60.3 H (35-45)
--- NOTE | 2018-08-23 11:52 | Progress Note ---
Assessment and Plan - Patient Problems (1) Acute exacerbation of COPD with asthma Current Visit: Yes Status: Acute Plan to address problem: Patient initiated on IV Levaquin IV Solumedrol and Duonebs /Albuterol Bipap if necessary Intubation if necessary Improving (2) Acute respiratory failure with hypoxia Current Visit: Yes Status: Acute Plan to address problem: Patient Hypoxic initially Refuses ABG Patient initiated on IV Levaquin IV Solumedrol and Duonebs /Albuterol Bipap if necessary Intubation if necessary Improving (3) Hypokalemia Current Visit: Yes Status: Acute Plan to address problem: Potassium supplemented (4) DVT prophylaxis Current Visit: Yes Status: Acute Plan to address problem: On Lovenox and GI prophylaxis. Subjective Date of service: 08/23/18 Principal diagnosis: AE-COPD; Ac on Ch hypercapnic hypoxemic resp failure; HTN Interval history: Still wheezing Objective - Constitutional Vitals: Vital Signs - 12hr 08/23/18 08/23/18 08/23/18 00:00 01:00 02:00 Temperature Pulse Rate 79 78 87 Pulse Rate [ Anterior Bilateral Throughout] Pulse Rate [ 112 H Apical] Respiratory 19 20 19 Rate Respiratory Rate [Anterior Bilateral Throughout] Blood Pressure 144/93 135/94 136/93 O2 Sat by Pulse 96 97 97 Oximetry 08/23/18 08/23/18 08/23/18 03:00 03:23 04:00 Temperature 99 F Pulse Rate 82 81 Pulse Rate [ Anterior Bilateral Throughout] Pulse Rate [ 71 Apical] Respiratory 20 20 Rate Respiratory Rate [Anterior Bilateral Throughout] Blood Pressure 140/107 147/101 O2 Sat by Pulse 98 96 Oximetry 08/23/18 08/23/18 08/23/18 05:00 06:00 07:00 Temperature Pulse Rate 72 92 H 66 Pulse Rate [ Anterior Bilateral Throughout] Pulse Rate [ Apical] Respiratory 18 26 H 18 Rate Respiratory Rate [Anterior Bilateral Throughout] Blood Pressure 134/80 154/113 137/85 O2 Sat by Pulse 97 98 100 Oximetry 08/23/18 08/23/18 08/23/18 08:00 08:01 09:00 Temperature 97.9 F Pulse Rate 80 69 Pulse Rate [ Anterior Bilateral Throughout] Pulse Rate [ 71 Apical] Respiratory 19 16 16 Rate Respiratory Rate [Anterior Bilateral Throughout] Blood Pressure 150/107 144/112 O2 Sat by Pulse 98 100 100 Oximetry 0608/23/18 08/23/18 09:10 09:14 09:40 Temperature Pulse Rate 71 Pulse Rate [ 73 74 Anterior Bilateral Throughout] Pulse Rate [ Apical] Respiratory 21 Rate Respiratory 20 20 Rate [Anterior Bilateral Throughout] Blood Pressure 144/112 O2 Sat by Pulse 98 Oximetry 08/23/18 08/23/18 08/23/18 10:00 10:01 11:01 Temperature Pulse Rate 104 H 108 H Pulse Rate [ Anterior Bilateral Throughout] Pulse Rate [ Apical] Respiratory 24 20 Rate Respiratory Rate [Anterior Bilateral Throughout] Blood Pressure 158/126 117/68 O2 Sat by Pulse 95 96 100 Oximetry General appearance: Present: mild distress, well-nourished - EENT Eyes: PERRL, EOM intact ENT: hearing intact, clear oral mucosa Ears: bilateral: normal - Neck Neck: supple, normal ROM - Respiratory Respiratory effort: normal Respiratory: bilateral: CTA, rhonchi, wheezing - Breasts Breasts: normal - Cardiovascular Heart rate: 78 Rhythm: regular Heart Sounds: Present: S1 & S2. Absent: gallop, rub Extremities: pulses intact, No edema, normal color, Full ROM - Gastrointestinal General gastrointestinal: Present: soft, non-tender, non-distended, normal bowel sounds - Genitourinary Female genitourinary: normal - Integumentary Integumentary: clear, warm, dry - Musculoskeletal Musculoskeletal: 1, strength equal bilaterally - Neurologic Neurologic: moves all extremities - Psychiatric Psychiatric: memory intact, appropriate mood/affect, intact judgment & insight - Labs CBC & Chem 7: 08/18/18 11:40 08/18/18 11:40 Labs: Abnormal lab results 08/22/18 Range/Units 13:57 POC ABG pCO2 60.3 H (35-45)
--- NOTE | 2018-08-23 14:53 | Progress Note ---
Assessment and Plan Acute exacerbation of COPD Acute on Chronic hypercapnic hypoxemic respiratory failure HTN Hyperglycemia - get AM CXR - change BIPAP therapy to qhs scheduled with prn daytime use (was continuous prior) - continue solumedrol dose at increased frequency - continue supplemental oxygen as needed to keep sat's 88-92% acutely (r estrictive therapy) - continue bronchodilators (MARCE & LABA) with pulmonary hygiene per RT - continue systemic steroids with slow taper - continue BIPAP scheduled qhs with prn daytime use - complete empiric CAP AB's course - continue singulair scheduled qhs - CTA negative for P.E. and D-dimer WNL - continue other care per attending / other consultants ..... re-evaluate prn through the day Subjective Date of service: 08/23/18 Principal diagnosis: AE-COPD; Ac on Ch hypercapnic hypoxemic resp failure; HTN Interval history: Patient is seen today for: Acute exacerbation of COPD; Acute on Chronic hypercapnic hypoxemic respiratory failure; HTN Seen and examined at bedside; 24hour events reviewed; nursing and respiratory care staff consulted; no adverse overnight events reported to me; resting in bed; doing much better; denies acute chest pains; still SOB and with HAMMOND but wheezing less and less accessory muscle use Objective Vital Signs - 12hr 08/23/18 08/23/18 08/23/18 03:00 03:23 04:00 Temperature 99 F Pulse Rate 82 81 Pulse Rate [ Anterior Bilateral Throughout] Pulse Rate [ 71 Apical] Respiratory 20 20 Rate Respiratory Rate [Anterior Bilateral Throughout] Blood Pressure 140/107 147/101 O2 Sat by Pulse 98 96 Oximetry 08/23/18 08/23/18 08/23/18 05:00 06:00 07:00 Temperature Pulse Rate 72 92 H 66 Pulse Rate [ Anterior Bilateral Throughout] Pulse Rate [ Apical] Respiratory 18 26 H 18 Rate Respiratory Rate [Anterior Bilateral Throughout] Blood Pressure 134/80 154/113 137/85 O2 Sat by Pulse 97 98 100 Oximetry 08/23/18 08/23/18 08/23/18 08:00 08:01 09:00 Temperature 97.9 F Pulse Rate 80 69 Pulse Rate [ Anterior Bilateral Throughout] Pulse Rate [ 71 Apical] Respiratory 19 16 16 Rate Respiratory Rate [Anterior Bilateral Throughout] Blood Pressure 150/107 144/112 O2 Sat by Pulse 98 100 100 Oximetry 08/23/18 08/23/18 08/23/18 09:10 09:14 09:40 Temperature Pulse Rate 71 Pulse Rate [ 73 74 Anterior Bilateral Throughout] Pulse Rate [ Apical] Respiratory 21 Rate Respiratory 20 20 Rate [Anterior Bilateral Throughout] Blood Pressure 144/112 O2 Sat by Pulse 98 Oximetry 08/23/18 08/23/18 08/23/18 10:00 10:01 11:01 Temperature Pulse Rate 104 H 108 H Pulse Rate [ Anterior Bilateral Throughout] Pulse Rate [ Apical] Respiratory 24 20 Rate Respiratory Rate [Anterior Bilateral Throughout] Blood Pressure 158/126 117/68 O2 Sat by Pulse 95 96 100 Oximetry 08/23/18 08/23/18 08/23/18 12:00 12:07 13:39 Temperature Pulse Rate 89 Pulse Rate [ 90 90 Anterior Bilateral Throughout] Pulse Rate [ Apical] Respiratory 20 Rate Respiratory 20 20 Rate [Anterior Bilateral Throughout] Blood Pressure 145/91 O2 Sat by Pulse 89 Oximetry Constitutional: alert, appears uncomfortable, other (elderly looking AAF with mildly increased resp effort at rest) Eyes: non-icteric ENT: oropharynx moist, other (mallampati 3) Neck: supple, no JVD, other (no thyromegaly) Effort: mildly labored Ascultation: Bilateral: wheezes (bilateral ), rhonchi (Bilateral ), other (prolonged exp phase) Percussion: Bilateral: not dull Cardiovascular: regular rate and rhythm, other (No R/M) Gastrointestinal: normoactive bowel sounds, soft, non-tender, non-distended Integumentary: normal Extremities: no cyanosis, no edema, pulses normal, no ischemia or petechiae Neurologic: normal mental status, non-focal exam, pupils equal and round, CN II- XII normal, motor strength normal and Psychiatric: mood appropriate, affect normal CBC and BMP: 08/24/18 05:07 08/24/18 05:07 ABG, PT/INR, D-dimer: ABG POC ABG pH 7.388 (7.35-7.45) 08/22/18 13:57 POC ABG pCO2 60.3 (35-45) H 08/22/18 13:57 POC ABG pO2 85 (80-105) 08/22/18 13:57 POC ABG HCO3 36.3 (22-26 mml/L) 08/22/18 13:57 POC ABG Total CO2 38 (23-27mmol/L) 08/22/18 13:57 POC ABG O2 Sat 96 08/22/18 13:57 PT/INR, D-dimer 231.72 ng/mlDDU (0-234) 08/19/18 08:15 Abnormal lab findings: Abnormal Labs 08/17/18 08/17/18 08/18/18 17:54 17:54 11:40 Hgb 14.5 H MCHC 35 H RDW 15.4 H 15.4 H Lymph % (Auto) 9.2 L [place] % (Auto) 11.3 H Lymph # 0.5 L Seg Neutrophils % 86.7 H POC ABG pCO2 Potassium 3.3 L Chloride 96.4 L Glucose 120 H 08/18/18 08/20/18 08/22/18 11:40 17:59 13:57 Hgb MCHC RDW Lymph % (Auto) [place] % (Auto) Lymph # Seg Neutrophils % POC ABG pCO2 63.0 H 60.3 H Potassium Chloride 95.2 L Glucose 192 H Chest x-ray: pending Allied health notes reviewed: nursing
[2018-08-23] MEDS: ATIVAN IV PRN (21:04)
[2018-08-23] MEDS: SINGULAIR PO SCH (21:06)
[2018-08-23] MEDS: TYLENOL PO PRN (21:07)
[2018-08-23] MEDS: LOVENOX SUB-Q SCH ×2 (21:07→21:16)
[2018-08-24] MEDS: SOLU-Medrol IV SCH ×4 (01:15→20:31)
[2018-08-24 05:33] LABS: Hematocrit 41.9 % (30.3-42.9); Hemoglobin 14.2 gm/dl (10.1-14.3); Mean Corpuscular HGB Conc 34 % (30-34); Mean Corpuscular Volume 93 fl (79-97); Platelet Count 264 K/mm3 (140-440); Red Blood Count 4.52 M/mm3 (3.65-5.03); Red Cell Distribution Width 15.5 % (13.2-15.2)
[2018-08-24 06:01] LABS: Alanine Aminotransferase 10 units/L (7-56); Albumin 3.4 g/dL (3.9-5); BUN/Creatinine Ratio 37; Blood Urea Nitrogen 22 mg/dL (7-17); Hemolysis Index 41
[2018-08-24] MEDS: TESSALON PERLES PO SCH ×4 (06:24→21:12)
[2018-08-24 08:05] LABS: Band Neutrophils # (Manual) 0.2 K/mm3; Basophils % (Manual) 0 % (0.0-1.8); Eosinophils % (Manual) 0 % (0.0-4.3); Total Cells Counted 100
[2018-08-24 08:06] LABS: Anisocytosis 1+; Platelet Estimate Consistent w Auto
[2018-08-24] MEDS: PULMICORT IH SCH ×2 (08:48→19:30)
[2018-08-24] MEDS: BROVANA NEBU IH SCH ×2 (08:48→19:30)
[2018-08-24] MEDS: DUONEB *Not for PRN Use IH SCH ×4 (08:48→19:30)
[2018-08-24] MEDS: COZAAR PO SCH (10:08)
[2018-08-24] MEDS: HCTZ PO SCH (10:08)
[2018-08-24] MEDS: LEVAQUIN PO SCH (10:08)
[2018-08-24] MEDS: NON-FORMULARY (Roflumilast [Daliresp] 500 MCG) PO SCH (10:09)
[2018-08-24] MEDS: SODIUM CHLORIDE FLUSH SYRINGE 10 ML IV SCH ×2 (10:12→21:12)
--- NOTE | 2018-08-24 16:58 | Progress Note ---
Assessment and Plan Acute exacerbation of COPD Acute on Chronic hypercapnic hypoxemic respiratory failure HTN Hyperglycemia - BIPAP therapy to qhs scheduled with prn daytime use (was continuous prior) - continue solumedrol but begin taper - continue supplemental oxygen as needed to keep sat's 88-92% acutely (restrictive therapy) - continue bronchodilators (MARCE & LABA) with pulmonary hygiene per RT - continue systemic steroids with slow taper - continue BIPAP scheduled qhs with prn daytime use - complete empiric CAP AB's course - continue singulair scheduled qhs - CTA negative for P.E. and D-dimer WNL - continue other care per attending / other consultants ... discharge planning ongoing concurrently ..... re-evaluate prn through the day Subjective Date of service: 08/24/18 Principal diagnosis: AE-COPD; Ac on Ch hypercapnic hypoxemic resp failure; HTN Interval history: Patient is seen today for: Acute exacerbation of COPD; Acute on Chronic hypercapnic hypoxemic respiratory failure; HTN Seen and examined at bedside; 24hour events reviewed; nursing and respiratory care staff consulted; no adverse overnight events reported to me; resting in bed; doing better; No N/V/F/C; no chest pain Objective Vital Signs - 12hr 08/24/18 08/24/18 08/24/18 05:01 06:01 07:00 Temperature Pulse Rate 73 83 76 Pulse Rate [ Anterior Bilateral Throughout] Pulse Rate [ From Monitor] Respiratory 20 21 Rate Respiratory Rate [Anterior Bilateral Throughout] Blood Pressure 128/90 128/90 O2 Sat by Pulse 100 100 Oximetry 08/24/18 08/24/18 08/24/18 07:01 08:00 08:48 Temperature 97.3 F L Pulse Rate 101 H 87 Pulse Rate [ 100 H Anterior Bilateral Throughout] Pulse Rate [ 75 From Monitor] Respiratory 13 20 Rate Respiratory 20 Rate [Anterior Bilateral Throughout] Blood Pressure 163/93 148/100 O2 Sat by Pulse 100 100 Oximetry 08/24/18 08/24/18 08/24/18 08:51 09:00 09:05 Temperature Pulse Rate 94 H Pulse Rate [ 102 H Anterior Bilateral Throughout] Pulse Rate [ From Monitor] Respiratory 21 Rate Respiratory 20 Rate [Anterior Bilateral Throughout] Blood Pressure 148/100 O2 Sat by Pulse 96 100 Oximetry 08/24/18 08/24/18 08/24/18 10:01 10:08 11:00 Temperature Pulse Rate 83 72 Pulse Rate [ Anterior Bilateral Throughout] Pulse Rate [ From Monitor] Respiratory 48 H Rate Respiratory Rate [Anterior Bilateral Throughout] Blood Pressure 148/100 148/100 O2 Sat by Pulse 100 Oximetry 08/24/18 08/24/18 08/24/18 11:01 12:00 12:01 Temperature 97.5 F L Pulse Rate 121 H 103 H Pulse Rate [ Anterior Bilateral Throughout] Pulse Rate [ 75 From Monitor] Respiratory 22 20 20 Rate Respiratory Rate [Anterior Bilateral Throughout] Blood Pressure 148/100 148/100 O2 Sat by Pulse 94 99 91 Oximetry 08/24/18 08/24/18 08/24/18 13:01 13:55 14:01 Temperature Pulse Rate 101 H 94 H Pulse Rate [ 93 H Anterior Bilateral Throughout] Pulse Rate [ From Monitor] Respiratory 18 17 Rate Respiratory 12 Rate [Anterior Bilateral Throughout] Blood Pressure 148/100 129/98 O2 Sat by Pulse 98 Oximetry 08/24/18 08/24/18 15:00 15:01 Temperature Pulse Rate 74 110 H Pulse Rate [ Anterior Bilateral Throughout] Pulse Rate [ From Monitor] Respiratory 23 Rate Respiratory Rate [Anterior Bilateral Throughout] Blood Pressure 129/98 O2 Sat by Pulse 92 Oximetry Constitutional: alert, appears uncomfortable, other (elderly looking AAF with mildly increased resp effort at rest) Eyes: non-icteric ENT: oropharynx moist, other (mallampati 3) Neck: supple, no JVD, other (no thyromegaly) Effort: mildly labored Ascultation: Bilateral: rhonchi (Bilateral ), other (prolonged exp phase) Percussion: Bilateral: not dull Cardiovascular: regular rate and rhythm, other (No R/M) Gastrointestinal: normoactive bowel sounds, soft, non-tender, non-distended Integumentary: normal Extremities: no cyanosis, no edema, pulses normal, no ischemia or petechiae Neurologic: normal mental status, non-focal exam, pupils equal and round, CN II- XII normal, motor strength normal and Psychiatric: mood appropriate, affect normal CBC and BMP: 08/24/18 05:07 08/24/18 05:07 ABG, PT/INR, D-dimer: ABG POC ABG pH 7.388 (7.35-7.45) 08/22/18 13:57 POC ABG pCO2 60.3 (35-45) H 08/22/18 13:57 POC ABG pO2 85 (80-105) 08/22/18 13:57 POC ABG HCO3 36.3 (22-26 mml/L) 08/22/18 13:57 POC ABG Total CO2 38 (23-27mmol/L) 08/22/18 13:57 POC ABG O2 Sat 96 08/22/18 13:57 PT/INR, D-dimer 231.72 ng/mlDDU (0-234) 08/19/18 08:15 Abnormal lab findings: Abnormal Labs 08/17/18 08/17/18 08/18/18 17:54 17:54 11:40 Hgb 14.5 H MCHC 35 H RDW 15.4 H 15.4 H Lymph % (Auto) 9.2 L [place] % (Auto) 11.3 H Lymph # 0.5 L Seg Neutrophils % 86.7 H Seg Neuts % (Manual) POC ABG pCO2 Potassium 3.3 L Chloride 96.4 L Carbon Dioxide BUN Creatinine Glucose 120 H Total Protein Albumin 08/18/18 08/20/18 08/22/18 11:40 17:59 13:57 Hgb MCHC RDW Lymph % (Auto) [place] % (Auto) Lymph # Seg Neutrophils % Seg Neuts % (Manual) POC ABG pCO2 63.0 H 60.3 H Potassium Chloride 95.2 L Carbon Dioxide BUN Creatinine Glucose 192 H Total Protein Albumin 08/24/18 08/24/18 05:07 05:07 Hgb MCHC RDW 15.5 H Lymph % (Auto) [place] % (Auto) Lymph # Seg Neutrophils % Seg Neuts % (Manual) 82.0 H POC ABG pCO2 Potassium Chloride 94.8 L Carbon Dioxide 39 H BUN 22 H Creatinine 0.6 L Glucose 122 H Total Protein 5.6 L Albumin 3.4 L Allied health notes reviewed: nursing
[2018-08-24] MEDS: LOVENOX SUB-Q SCH (21:12)
[2018-08-24] MEDS: SINGULAIR PO SCH (21:12)
[2018-08-25] MEDS: SOLU-Medrol IV SCH ×3 (01:49→15:49)
[2018-08-25] MEDS: TESSALON PERLES PO SCH ×2 (06:21→15:49)
[2018-08-25] MEDS: PULMICORT IH SCH (09:03)
[2018-08-25] MEDS: DUONEB *Not for PRN Use IH SCH ×2 (09:03→14:57)
[2018-08-25] MEDS: BROVANA NEBU IH SCH (09:03)
--- NOTE | 2018-08-25 09:58 | Progress Note ---
Assessment and Plan - Patient Problems (1) Acute exacerbation of COPD with asthma Current Visit: Yes Status: Acute Plan to address problem: Patient initiated on IV Levaquin IV Solumedrol and Duonebs /Albuterol Bipap if necessary Intubation if necessary Improving (2) Acute respiratory failure with hypoxia Current Visit: Yes Status: Acute Plan to address problem: Patient Hypoxic initially Refuses ABG Patient initiated on IV Levaquin IV Solumedrol and Duonebs /Albuterol Bipap if necessary Intubation if necessary Improving (3) Hypokalemia Current Visit: Yes Status: Acute Plan to address problem: Potassium supplemented (4) DVT prophylaxis Current Visit: Yes Status: Acute Plan to address problem: On Lovenox and GI prophylaxis. Subjective Date of service: 08/24/18 Principal diagnosis: AE-COPD; Ac on Ch hypercapnic hypoxemic resp failure; HTN Interval history: Still wheezing Objective - Constitutional Vitals: Vital Signs - 12hr 08/24/18 08/24/18 08/25/18 22:00 23:01 00:00 Temperature 99.0 F Pulse Rate 94 H 102 H 87 Respiratory 19 30 H 20 Rate Blood Pressure 134/87 134/87 134/86 O2 Sat by Pulse 90 91 94 Oximetry 08/25/18 08/25/18 08/25/18 01:00 02:00 03:00 Temperature Pulse Rate 87 92 H 85 Respiratory 21 22 21 Rate Blood Pressure 133/87 137/93 128/84 O2 Sat by Pulse 94 93 94 Oximetry 08/25/18 08/25/18 08/25/18 04:00 05:00 06:00 Temperature 97.9 F Pulse Rate 87 101 H Respiratory 23 22 Rate Blood Pressure 152/100 132/89 146/93 O2 Sat by Pulse 91 94 92 Oximetry 08/25/18 08/25/18 08:00 09:04 Temperature 98.8 F Pulse Rate Respiratory Rate Blood Pressure O2 Sat by Pulse 92 Oximetry General appearance: Present: no acute distress, well-nourished - EENT Eyes: PERRL, EOM intact ENT: hearing intact, clear oral mucosa Ears: bilateral: normal - Neck Neck: supple, normal ROM - Respiratory Respiratory effort: normal Respiratory: bilateral: CTA - Breasts Breasts: normal - Cardiovascular Heart rate: 78 Rhythm: regular Heart Sounds: Present: S1 & S2. Absent: gallop, rub Extremities: pulses intact, No edema, normal color, Full ROM - Gastrointestinal General gastrointestinal: Present: soft, non-tender, non-distended, normal bowel sounds - Genitourinary Female genitourinary: normal - Integumentary Integumentary: clear, warm, dry - Musculoskeletal Musculoskeletal: 1, strength equal bilaterally - Neurologic Neurologic: moves all extremities - Psychiatric Psychiatric: memory intact, appropriate mood/affect, intact judgment & insight - Labs CBC & Chem 7: 08/24/18 05:07 08/24/18 05:07
--- NOTE | 2018-08-25 10:01 | Discharge Summary ---
Providers - Providers Date of Admission: 08/17/18 18:56 Date of discharge: 08/25/18 Attending physician: TROY MONROE 08/17/18 20:42 Consult to Physician [CONS] Routine Comment: ANTHONY Consulting Provider: MARCO LA Physician Instructions: CONSULT WAS CALLED TO DR. RENDON Reason For Exam: COPD exacerbation 08/19/18 09:06 Physical Therapy Evaluation and Treat [CONS] Routine Comment: Reason For Exam: Weakness Primary care physician: [employer] TECHNICIAN Hospitalization Condition: Stable Hospital course: (1) Acute exacerbation of COPD with asthma Current Visit: Yes Status: Acute Plan to address problem: Patient initiated on IV Levaquin IV Solumedrol and Duonebs /Albuterol Bipap if necessary Intubation if necessary Improvied (2) Acute respiratory failure with hypoxia Current Visit: Yes Status: Acute Plan to address problem: Patient Hypoxic initially Refuses ABG Patient initiated on IV Levaquin IV Solumedrol and Duonebs /Albuterol Bipap if necessary Intubation if necessary Improved SDischarge today (3) Hypokalemia Current Visit: Yes Status: Acute Plan to address problem: Potassium supplemented (4) DVT prophylaxis Current Visit: Yes Status: Acute Plan to address problem: On Lovenox and GI prophylaxis. Disposition: - TO HOME OR SELFCARE - Discharge Diagnoses (1) Acute exacerbation of COPD with asthma Status: Acute (2) Acute respiratory failure with hypoxia Status: Acute (3) Hypokalemia Status: Acute (4) DVT prophylaxis Status: Acute Core Measure Documentation - Palliative Care Palliative Care/ Comfort Measures: Not Applicable - Core Measures Any of the following diagnoses?: none Exam - Constitutional Vitals: Temp Pulse Resp BP Pulse Ox 98.8 F 101 H 22 146/93 92 08/25/18 08:00 08/25/18 06:00 08/25/18 06:00 08/25/18 06:00 08/25/18 09:04 General appearance: Present: no acute distress, well-nourished - EENT Eyes: Present: PERRL ENT: hearing intact, clear oral mucosa - Neck Neck: Present: supple, normal ROM - Respiratory Respiratory effort: normal Respiratory: bilateral: CTA - Cardiovascular Heart rate: 78 Rhythm: regular Heart Sounds: Present: S1 & S2. Absent: rub, click - Extremities Extremities: no ischemia, pulses intact, pulses symmetrical, No edema Peripheral Pulses: within normal limits - Abdominal General gastrointestinal: Present: soft, non-tender, non-distended, normal bowel sounds Female genitourinary: Present: normal - Rectal Rectal Exam: deferred - Integumentary Integumentary: Present: clear, warm, dry - Musculoskeletal Musculoskeletal: gait normal, strength equal bilaterally - Psychiatric Psychiatric: appropriate mood/affect, intact judgment & insight - Neurologic Neurologic: CNII-XII intact, moves all extremities - Allied Health Allied health notes reviewed: nursing, case management Plan Activity: no restrictions Diet: low cholesterol, low salt Follow up with: PRIMARY CARE, [Primary Care Provider] - 3-5 Days MARCO LA MD [Staff Physician] - 7 Days Prescriptions: Prednisone [predniSONE 10 mg (6-Day Pack, 21 Tabs)] 10 mg PO .TAPER #1 tab.ds.pk
[2018-08-25] MEDS: LEVAQUIN PO SCH (10:33)
[2018-08-25] MEDS: HCTZ PO SCH (10:33)
[2018-08-25] MEDS: NON-FORMULARY (Roflumilast [Daliresp] 500 MCG) PO SCH (10:33)
[2018-08-25] MEDS: COZAAR PO SCH (10:33)
[2018-08-25] MEDS: SODIUM CHLORIDE FLUSH SYRINGE 10 ML IV SCH (10:34)
[2018-08-25 13:21] VITALS: BP 138/73
--- NOTE | 2018-08-25 13:59 | Progress Note ---
Assessment and Plan Patient awake.O2 saturation 95% on room air.No complaint of chest pain, shortness of breath and cough.Patient going home to day. Recommend to follow with route contractor in [facility]. Cat scan of chest No PE.Reported multiple hepatic cysts. Strongly recommend to follow up on Liver cysts with her primary care. - Patient Problems (1) Acute exacerbation of COPD with asthma Current Visit: Yes Status: Acute Plan to address problem: Albuterol/atrovent aerosol treatments q 6 hours. Continue I/V solumedrol. Continue Levaquin Continue S/C Lovenox. (2) Acute respiratory failure with hypoxia Current Visit: Yes Status: Acute Plan to address problem: O2 3 litres via nasal canula. BIPAP stand by in the room. Albuterol/atrovent aerosol treatments q 6 hours. Continue I/V solumedrol. Continue Levaquin Continue S/C Lovenox. Subjective Date of service: 08/25/18 Principal diagnosis: AE-COPD; Ac on Ch hypercapnic hypoxemic resp failure; HTN Interval history: Patient awake.O2 saturation 95% on room air.No complaint of chest pain, sh ortness of breath and cough.Patient going home to day. Recommend to follow with route contractor in [facility]. Cat scan of chest No PE.Reported multiple hepatic cysts. Strongly recommend to follow up on Liver cysts with her primary care. Objective Vital Signs - 12hr 08/25/18 08/25/18 08/25/18 02:00 03:00 04:00 Temperature 97.9 F Pulse Rate 92 H 85 Pulse Rate [ From Monitor] Respiratory 22 21 Rate Blood Pressure 137/93 128/84 152/100 O2 Sat by Pulse 93 94 91 Oximetry 08/25/18 08/25/18 08/25/18 05:00 06:00 07:00 Temperature Pulse Rate 87 101 H 96 H Pulse Rate [ From Monitor] Respiratory 23 22 17 Rate Blood Pressure 132/89 146/93 144/99 O2 Sat by Pulse 94 92 93 Oximetry 08/25/18 08/25/18 08/25/18 08:00 09:00 09:04 Temperature 98.8 F Pulse Rate 100 H 106 H Pulse Rate [ 100 H From Monitor] Respiratory 18 26 H Rate Blood Pressure 150/94 148/88 O2 Sat by Pulse 92 93 92 Oximetry 08/25/18 08/25/1808/25/19 10:01 10:33 11:00 Temperature Pulse Rate 103 H 93 H 97 H Pulse Rate [ From Monitor] Respiratory 19 18 Rate Blood Pressure 167/106 167/106 145/92 O2 Sat by Pulse 94 95 Oximetry 08/25/18 08/25/18 08/25/18 11:55 12:00 13:00 Temperature 98.2 F Pulse Rate 90 111 H Pulse Rate [ 92 H From Monitor] Respiratory 20 22 Rate Blood Pressure 162/105 138/73 O2 Sat by Pulse 94 95 Oximetry Constitutional: no acute distress, alert, other (elderly looking AAF with mildly increased resp effort at rest) Eyes: non-icteric ENT: oropharynx moist, other (mallampati 3) Neck: supple, no JVD, other (no thyromegaly) Effort: mildly labored Ascultation: Bilateral: wheezes (bilateral ), rhonchi (Bilateral ), other ( prolonged exp phase) Percussion: Bilateral: not dull Cardiovascular: regular rate and rhythm, other (No R/M) Gastrointestinal: normoactive bowel sounds, soft, non-tender, non-distended Integumentary: normal Extremities: no cyanosis, no edema, pulses normal, no ischemia or petechiae Neurologic: normal mental status, non-focal exam, pupils equal and round, CN II- XII normal, motor strength normal and Psychiatric: mood appropriate, affect normal CBC and BMP: 08/24/18 05:07 08/24/18 05:07 ABG, PT/INR, D-dimer: ABG POC ABG pH 7.388 (7.35-7.45) 08/22/18 13:57 POC ABG pCO2 60.3 (35-45) H 08/22/18 13:57 POC ABG pO2 85 (80-105) 08/22/18 13:57 POC ABG HCO3 36.3 (22-26 mml/L) 08/22/18 13:57 POC ABG Total CO2 38 (23-27mmol/L) 08/22/18 13:57 POC ABG O2 Sat 96 08/22/18 13:57 PT/INR, D-dimer 231.72 ng/mlDDU (0-234) 08/19/18 08:15 Abnormal lab findings: Abnormal Labs 0508/17/18 08/18/18 17:54 17:54 11:40 Hgb 14.5 H MCHC 35 H RDW 15.4 H 15.4 H Lymph % (Auto) 9.2 L [place] % (Auto) 11.3 H Lymph # 0.5 L Seg Neutrophils % 86.7 H Seg Neuts % (Manual) POC ABG pCO2 Potassium 3.3 L Chloride 96.4 L Carbon Dioxide BUN Creatinine Glucose 120 H Total Protein Albumin 08/18/18 08/20/18 08/22/18 11:40 17:59 13:57 Hgb MCHC RDW Lymph % (Auto) [place] % (Auto) Lymph # Seg Neutrophils % Seg Neuts % (Manual) POC ABG pCO2 63.0 H 60.3 H Potassium Chloride 95.2 L Carbon Dioxide BUN Creatinine Glucose 192 H Total Protein Albumin 08/24/18 08/24/18 05:07 05:07 Hgb MCHC RDW 15.5 H Lymph % (Auto) [place] % (Auto) Lymph # Seg Neutrophils % Seg Neuts % (Manual) 82.0 H POC ABG pCO2 Potassium Chloride 94.8 L Carbon Dioxide 39 H BUN 22 H Creatinine 0.6 L Glucose 122 H Total Protein 5.6 L Albumin 3.4 L Allied health notes reviewed: nursing
== END 2018-08-25 16:07 | disposition home or self-care (01) | DRG 189 ==
LOC: ED 15:18 → 2B-ACE 18:56 → IMCU 08-22 12:55
PROVIDERS: ADMIT Internal Medicine; ATTEND Internal Medicine
PROC: 4A033R1 Measurement of Arterial Saturation, Peripheral, Percutaneous Approach (ICD-10-PCS; principal; 2018-08-17)
PROC: 5A09457 Assistance with Respiratory Ventilation, 24-96 Consecutive Hours, Continuous Positive Airway Pressure (ICD-10-PCS; 2018-08-18)
PROC: 5A09457 Assistance with Respiratory Ventilation, 24-96 Consecutive Hours, Continuous Positive Airway Pressure (ICD-10-PCS; 2018-08-22)
DX: J96.21 Acute and chronic respiratory failure with hypoxia (principal); J44.1 Chronic obstructive pulmonary disease with (acute) exacerbation; J96.22 Acute and chronic respiratory failure with hypercapnia; K76.89 Other specified diseases of liver; I10 Essential (primary) hypertension; E87.6 Hypokalemia; R73.9 Hyperglycemia, unspecified; Z96.653 Presence of artificial knee joint, bilateral; F12.90 Cannabis use, unspecified, uncomplicated; Z72.89 Other problems related to lifestyle; Z82.49 Family history of ischemic heart disease and other diseases of the circulatory system; Z79.899 Other long term (current) drug therapy
CPT/HCPCS: 36415; 36600; 71045; 71275; 80053; 82803; 83036; 85007; 85025; 85379; 94640; 94660; 94760; G0378; J1650; J1956; J2060; J2920; J2930; J3246; J3475; J7030; J7512; Q9967